=== PATIENT | male | born 1965 | race American Indian/Alaskan Native ===

== ENCOUNTER 2021-03-05 22:01 | Inpatient (IN) | payer SELFPAY ==
--- NOTE | 2021-03-05 23:15 | Emergency Department Report ---
HPI - General Chief Complaint: Weakness Time Seen by Provider: 03/05/21 23:01 - HPI HPI: 55-year-old -[place] male presents to the emergency department with complaint of weakness and episodes of passing out over the past 2 days. Patient says that multiple times he has gotten up from being seated, or gotten out of his car, " I cannot make it more than 4 steps before I get weak or pass out." He denies any headache, vision change, slurred speech, numbness or paresthesias, chest pain. At the time of my examination, while seated and resting, the patient says that he is asymptomatic. He denies any past medical history. He does not have a primary care physician. No recent travel or sick contacts at home. He has not taken anything for symptoms prior to presentation today. ED Past Medical Hx - Past Medical History Previous Medical History?: No - Surgical History Past Surgical History?: No ED Review of Systems ROS: Stated complaint: WEAKNESS Other details as noted in HPI Comment: All other systems reviewed and negative Constitutional: weakness. denies: chills, fever Eyes: denies: eye pain, vision change ENT: denies: ear pain, throat pain Respiratory: denies: cough, shortness of breath Cardiovascular: syncope. denies: chest pain, palpitations Gastrointestinal: denies: abdominal pain, vomiting Genitourinary: denies: dysuria, discharge Musculoskeletal: denies: back pain, arthralgia Skin: denies: rash, lesions Neurological: denies: headache, numbness, paresthesias Physical Exam - Physical Exam Vital Signs: Vital Signs 03/05/21 22:42 Temperature 97.6 F Pulse Rate 92 H Respiratory 17 Rate Blood Pressure 104/61 [Right] O2 Sat by Pulse 100 Oximetry Physical Exam: GENERAL: The patient is well-developed well-nourished. HENT: Normocephalic. Atraumatic. Patient has moist mucous membranes. EYES: Extraocular motions are intact. No nystagmus. NECK: Supple. Trachea is midline. CHEST/LUNGS: Clear to auscultation. There is no respiratory distress noted. HEART/CARDIOVASCULAR: Regular. There is no tachycardia. There is no murmur. ABDOMEN: Abdomen is soft, nontender. Patient has normal bowel sounds. There is no abdominal distention. SKIN: Skin is warm and dry. NEURO: The patient is awake, alert, and oriented. The patient is cooperative. The patient has no focal neurologic deficits. Normal speech. Cranial nerves II through XII grossly intact. No facial symmetry. No pronator drift or dysmetria. MUSCULOSKELETAL: There is no tenderness or deformity. There is no limitation range of motion. Muscle strength 5 out of 5 for upper and lower extremities bilaterally. RECTAL: Dark brown stool that is positive on guaiac testing. ED Course Vital Signs 03/05/21 22:42 Temperature 97.6 F Pulse Rate 92 H Respiratory 17 Rate Blood Pressure 104/61 [Right] O2 Sat by Pulse 100 Oximetry ED Medical Decision Making - Lab Data Result diagrams: 03/05/21 23:17 03/05/21 23:17 Lab Results 03/05/21 03/05/21 03/05/21 Range/Units 23:17 23:17 23:17 WBC 9.9 (4.5-11.0) K/mm3 RBC 1.81 L (3.65-5.03) M/mm3 Hgb 4.0 L* (11.8-15.2) gm/dl Hct 13.4 L* (35.5-45.6) % MCV 74 L (84-94) fl MCH 22 L (28-32) pg MCHC 30 L (32-34) % RDW 18.4 H (13.2-15.2) % Plt Count 249 (140-440) K/mm3 Add Manual Diff Complete Total Counted 100 Seg Neuts % (Manual) 96.0 H (40.0-70.0) % Lymphocytes % (Manual) 3.0 L (13.4-35.0) % Monocytes % (Manual) 1.0 (0.0-7.3) % Nucleated RBC % Not Reportable Seg Neutrophils # Man 9.5 H (1.8-7.7) K/mm3 Band Neutrophils # 0.0 K/mm3 Lymphocytes # (Manual) 0.3 L (1.2-5.4) K/mm3 Abs React Lymphs (Man) 0.0 K/mm3 Monocytes # (Manual) 0.1 (0.0-0.8) K/mm3 Eosinophils # (Manual) 0.0 (0.0-0.4) K/mm3 Basophils # (Manual) 0.0 (0.0-0.1) K/mm3 Metamyelocytes # 0.0 K/mm3 Myelocytes # 0.0 K/mm3 Promyelocytes # 0.0 K/mm3 Blast Cells # 0.0 K/mm3 WBC Morphology Not Reportable Hypersegmented Neuts Not Reportable Hyposegmented Neuts Not Reportable Hypogranular Neuts Not Reportable Smudge Cells Not Reportable Toxic Granulation Not Reportable Toxic Vacuolation Not Reportable Dohle Bodies Not Reportable Pelger-Huet Anomaly Not Reportable Marianne Rods Not Reportable Platelet Estimate Consistent w auto Clumped Platelets Not Reportable Plt Clumps, EDTA Not Reportable Large Platelets Not Reportable Giant Platelets Not Reportable Platelet Satelliting Not Reportable Plt Morphology Comment Not Reportable RBC Morphology Not Reportable Dimorphic RBCs Not Reportable Polychromasia Not Reportable Hypochromasia 2+ Poikilocytosis Not Reportable Anisocytosis 1+ Microcytosis Not Reportable Macrocytosis Not Reportable Spherocytes Not Reportable Pappenheimer Bodies Not Reportable Sickle Cells Not Reportable Target Cells Not Reportable Tear Drop Cells Not Reportable Ovalocytes Not Reportable Helmet Cells Not Reportable [place] Bodies Not Reportable [place] Rings Not Reportable Rhina Cells Not Reportable Bite Cells Not Reportable Crenated Cell Not Reportable Elliptocytes Not Reportable Acanthocytes (Spur) Few Rouleaux Not Reportable Hemoglobin C Crystals Not Reportable Schistocytes 1+ Malaria parasites Not Reportable Pan Bodies Not Reportable Hem Pathologist Commnt No Sodium 139 (137-145) mmol/L Potassium 4.2 (3.6-5.0) mmol/L Chloride 101.4 (98-107) mmol/L Carbon Dioxide 21 L (22-30) mmol/L Anion Gap 21 mmol/L BUN 49 H (9-20) mg/dL Creatinine 1.7 H (0.8-1.3) mg/dL Estimated GFR 42 ml/min BUN/Creatinine Ratio 29 % Glucose 155 H (75-100) mg/dL Calcium 8.5 (8.4-10.2) mg/dL Magnesium 1.60 L (1.7-2.3) mg/dL Total Bilirubin 0.30 (0.1-1.2) mg/dL AST 12 (5-40) units/L ALT 9 (7-56) units/L Alkaline Phosphatase 79 (35-129) units/L Troponin T 0.114 H* (0.00-0.029) ng/mL Total Protein 6.2 L (6.3-8.2) g/dL Albumin 3.4 L (3.9-5) g/dL Albumin/Globulin Ratio 1.2 % Triglycerides 82 (2-149) mg/dL Cholesterol 107 (50-199) mg/dL LDL Cholesterol Direct 53 (50-130) mg/dL HDL Cholesterol 42 (40-59) mg/dL Cholesterol/HDL Ratio 2.54 % TSH 3.360 (0.270-4.200) mlU/mL Blood Type Antibody Screen Crossmatch 03/05/21 Range/Units 23:50 WBC (4.5-11.0) K/mm3 RBC (3.65-5.03) M/mm3 Hgb (11.8-15.2) gm/dl Hct (35.5-45.6) % MCV (84-94) fl MCH (28-32) pg MCHC (32-34) % RDW (13.2-15.2) % Plt Count (140-440) K/mm3 Add Manual Diff Total Counted Seg Neuts % (Manual) (40.0-70.0) % Lymphocytes % (Manual) (13.4-35.0) % Monocytes % (Manual) (0.0-7.3) % Nucleated RBC % Seg Neutrophils # Man (1.8-7.7) K/mm3 Band Neutrophils # K/mm3 Lymphocytes # (Manual) (1.2-5.4) K/mm3 Abs React Lymphs (Man) K/mm3 Monocytes # (Manual) (0.0-0.8) K/mm3 Eosinophils # (Manual) (0.0-0.4) K/mm3 Basophils # (Manual) (0.0-0.1) K/mm3 Metamyelocytes # K/mm3 Myelocytes # K/mm3 Promyelocytes # K/mm3 Blast Cells # K/mm3 WBC Morphology Hypersegmented Neuts Hyposegmented Neuts Hypogranular Neuts Smudge Cells Toxic Granulation Toxic Vacuolation Dohle Bodies Pelger-Huet Anomaly Marianne Rods Platelet Estimate Clumped Platelets Plt Clumps, EDTA Large Platelets Giant Platelets Platelet Satelliting Plt Morphology Comment RBC Morphology Dimorphic RBCs Polychromasia Hypochromasia Poikilocytosis Anisocytosis Microcytosis Macrocytosis Spherocytes Pappenheimer Bodies Sickle Cells Target Cells Tear Drop Cells Ovalocytes Helmet Cells [place]-Buf[place] Bodies [place] Rings Rhina Cells Bite Cells Crenated Cell Elliptocytes Acanthocytes (Spur) Rouleaux Hemoglobin C Crystals Schistocytes Malaria parasites Pan Bodies Hem Pathologist Commnt Sodium (137-145) mmol/L Potassium (3.6-5.0) mmol/L Chloride (98-107) mmol/L Carbon Dioxide (22-30) mmol/L Anion Gap mmol/L BUN (9-20) mg/dL Creatinine (0.8-1.3) mg/dL Estimated GFR ml/min BUN/Creatinine Ratio % Glucose (75-100) mg/dL Calcium (8.4-10.2) mg/dL Magnesium (1.7-2.3) mg/dL Total Bilirubin (0.1-1.2) mg/dL AST (5-40) units/L ALT (7-56) units/L Alkaline Phosphatase (35-129) units/L Troponin T (0.00-0.029) ng/mL Total Protein (6.3-8.2) g/dL Albumin (3.9-5) g/dL Albumin/Globulin Ratio % Triglycerides (2-149) mg/dL Cholesterol (50-199) mg/dL LDL Cholesterol Direct (50-130) mg/dL HDL Cholesterol (40-59) mg/dL Cholesterol/HDL Ratio % TSH (0.270-4.200) mlU/mL Blood Type O POSITIVE Antibody Screen Negative Crossmatch See Detail - EKG Data -: EKG Interpreted by Ne EKG shows normal: axis, intervals, QRS complexes (LVH, Q waves to the anterior leads), ST-T waves (T wave inversions to the lateral leads) Rate: normal - EKG Data When compared to previous EKG there are: previous EKG unavailable Interpretation: other (Ectopic atrial rhythm at 79 bpm, left axis deviation, LVH, Q waves to the septal leads, T wave inversions to the lateral leads) - Radiology Data Radiology results: report reviewed CT HEAD WITHOUT CONTRAST INDICATION / CLINICAL INFORMATION: Weakness, recurring syncope. TECHNIQUE: All CT scans at this location are performed using CT dose reduction for ALARA by means of automated exposure control. COMPARISON: None available. FINDINGS: BRAIN PARENCHYMA: No acute intracranial hemorrhage. No evidence of recent infarct. No mass effect or midline shift. Severe chronic small vessel ischemic changes with confluent areas of periventricular and subcortical white matter hypoattenuation. Remote left parietal, left thalamus, and right occipital lobe infarctions noted. VENTRICULAR SYSTEM/EXTRA-AXIAL SPACES: Diffuse cerebral atrophy, advanced for age. No extra-axial fluid collection. ORBITS: Normal as visualized. SKELETAL SYSTEM/SOFT TISSUES: Normal bones and soft tissues. PARANASAL SINUSES/MASTOID AIR CELLS: No significant abnormality. ADDITIONAL FINDINGS: None. IMPRESSION: 1. No evidence of acute intracranial abnormality. 2. Severe chronic ischemic changes with remote infarcts, as detailed above. - Medical Decision Making This patient presents to the emergency department with the complaint of having a few syncopal episodes and significant generalized weakness to the point where he has difficulty walking more than 4 steps. On examination the patient does not have any focal, motor or sensory deficits and his cranial nerves are intact, but this examination was done while in the [facility] and muscle strength tested against gravity. The patient did have difficulty bearing weight/standing and transferring from the [facility] to the CT scanner and back. EKG did not have any morphology consistent with ST elevation myocardial infarction. CT scan of the head without contrast did not show any hemorrhage, large vessel occlusion or any acute process but there is evidence of multiple remote infarcts and some atrophy. Patient's labs show a hemoglobin of 4, acute kidney injury with a GFR of about 40, elevated troponin level of 0.11. Patient symptoms may be secondary to the significant anemia. The patient has no complaints of chest pain but the elevated troponin and a possible NSTEMI may also be related to the significant anemia causing a supplydemand myocardial mismatch. Rectal examination shows dark brown stool that is positive on guaiac testing. A dose of IV Protonix has been given and a consult has been placed for GI. 3 units of packed red blood cells have been ordered for transfusion. The patient will be admitted to the hospital for further evaluation and treatment and was accepted for admission by the hospitalist, Dr. Cole. Critical Care Time: Yes Critical care time in (mins) excluding proc time.: 35 Critical care attestation.: If time is entered above; I have spent that time in minutes in the direct care of this critically ill patient, excluding procedure time. Critical care time was spent on this patient in doing his initial evaluation, multiple reevaluations, ordering and interpretation of labs and imaging, ordering of 3 units of packed red blood cells for transfusion, multiple discussions with the patient. Critical Care Time: 35 minutes ED Disposition Clinical Impression: Recurrent syncope, Symptomatic anemia, GI bleed, KRISTOFER (acute kidney injury), NSTEMI (non-ST elevated myocardial infarction) Disposition: 09 ADMITTED INPATIENT Is pt being admited?: Yes Condition: Serious Time of Disposition: 01:07
[2021-03-05 23:28] LABS: Mean Corpuscular HGB Conc 30 % (32-34); Mean Corpuscular Volume 74 fl (84-94); Platelet Count 249 K/mm3 (140-440); Red Blood Count 1.81 M/mm3 (3.65-5.03); Red Cell Distribution Width 18.4 % (13.2-15.2)
[2021-03-05 23:35] LABS: Hematocrit 13.4 % (35.5-45.6)
[2021-03-05] MEDS ORDERED: PANTOPRAZOLE 40 MG INJ IV ONE (23:42)
[2021-03-05] MEDS ORDERED: SODIUM CHLORIDE 0.9% 500 ML 500 ML IV ONE (23:43)
[2021-03-05 23:51] LABS: Albumin 3.4 g/dL (3.9-5); Calcium 8.5 mg/dL (8.4-10.2)
[2021-03-06] MEDS ORDERED: MAGNESIUM SULFATE 1 GM in SODIUM CHLORIDE 0.9% 50 ML IV ONE (00:34)
--- NOTE | 2021-03-06 00:38 | Cat Scan Report ---
CT HEAD WITHOUT CONTRAST INDICATION / CLINICAL INFORMATION: Weakness, recurring syncope. TECHNIQUE: All CT scans at this location are performed using CT dose reduction for ALARA by means of automated exposure control. COMPARISON: None available. FINDINGS: BRAIN PARENCHYMA: No acute intracranial hemorrhage. No evidence of recent infarct. No mass effect or midline shift. Severe chronic small vessel ischemic changes with confluent areas of periventricular a nd subcortical white matter hypoattenuation. Remote left parietal, left thalamus, and right occipital lobe infarctions noted. VENTRICULAR SYSTEM/EXTRA-AXIAL SPACES: Diffuse cerebral atrophy, advanced for age. No extra-axial flu id collection. ORBITS: Normal as visualized. SKELETAL SYSTEM/SOFT TISSUES: Normal bones and soft tissues. PARANASAL SINUSES/MASTOID AIR CELLS: No significant abnormality. ADDITIONAL FINDINGS: None. IMPRESSION: 1. No evidence of acute intracranial abnormality. 2. Severe chronic ischemic changes with remote infarcts, as detailed above. Signer Name: Raciel Beverly MD Signed: 03/06/2021 12:33 AM Workstation Name: [id number]
[2021-03-06 01:40] LABS: Total Cells Counted 100
[2021-03-06 01:41] LABS: Schistocytes 1+
[2021-03-06 01:42] LABS: Hypochromasia 2+
[2021-03-06 01:43] LABS: Anisocytosis 1+; Platelet Estimate Consistent w Auto
[2021-03-06 01:50] LABS: Chol/HDL Ratio 2.54 %
[2021-03-06] MEDS ORDERED: ACETAMINOPHEN 325 MG TAB PO PRN (02:47)
[2021-03-06] MEDS ORDERED: MORPHINE 4 MG/1 ML INJ IV PRN (02:47)
[2021-03-06] MEDS ORDERED: traMADol 50 MG TAB PO PRN (02:47)
--- NOTE | 2021-03-06 02:55 | History and Physical Report ---
History of Present Illness Date of examination: 03/06/21 Date of admission: 03/06/21 Chief complaint: Weakness Syncope History of present illness: 55-year-old -[place] male with no significant past medical history was brought to the emergency room because of weakness and episodes of passing out over the past 2 days. Patient says that multiple times he has gotten up from being seated, or gotten out of his car, " I cannot make it more than 4 steps before I get weak or pass out." He denies any headache, vision change, slurred speech, numbness or paresthesias, chest pain. while seated and resting, the patient says that he is asymptomatic. He does not have a primary care physician. No recent travel or sick contacts at home. In the emergency room patient is found to have hemoglobin of 4.0 and hematocrit 13.4, also patient troponin is elevated 0.114.'s were going to admit the patient to the telemetry. Will consult GI. Patient is getting 3 unit of packed red blood cell, Protonix we also consult cardiology Medications and Allergies Allergies Allergy/AdvReac Type Severity Reaction Status Date / Time No Known Allergies Allergy Verified 03/05/21 22:48 Active Meds: Active Medications Acetaminophen (Acetaminophen 325 Mg Tab) 650 mg PO Q6H PRN PRN Reason: Pain, Mild (1-3) Atorvastatin Calcium (Atorvastatin 40 Mg Tab) 40 mg PO QHS FRANKIE Sodium Chloride (Nacl 0.9% 1000 Ml) 1,000 mls @ 100 mls/hr IV DIRECT FRANKIE Morphine Sulfate (Morphine 4 Mg/1 Ml Inj) 2 mg IV Q5MIN PRN PRN Reason: Chest Pain unrelieved by NTG Pantoprazole Sodium (Pantoprazole 40 Mg Inj) 40 mg IV BID FRANKIE Sodium Chloride (Sodium Chloride 0.9% 10 Ml Flush Syringe) 10 ml IV PRN PRN PRN Reason: LINE FLUSH Tramadol HCl (Tramadol 50 Mg Tab) 50 mg PO Q6H PRN PRN Reason: Pain, Moderate (4-6) Review of Systems All systems: negative Constitutional: weakness Cardiovascular: syncope Exam - Constitutional Vitals: Temp Pulse Resp BP Pulse Ox 97.6 F 92 H 17 104/61 100 03/05/21 22:42 03/05/21 22:42 03/05/21 22:42 03/05/21 22:42 03/05/21 22:42 General appearance: Present: no acute distress, well-nourished - EENT Eyes: Present: PERRL ENT: hearing intact, clear oral mucosa - Neck Neck: Present: supple, normal ROM - Respiratory Respiratory effort: normal Respiratory: bilateral: diminished - Cardiovascular Heart Sounds: Present: S1 & S2. Absent: rub, click - Extremities Extremities: pulses symmetrical, No edema Peripheral Pulses: within normal limits - Abdominal General gastrointestinal: Present: soft, non-tender, non-distended, normal bowel sounds Male genitourinary: Present: normal - Integumentary Integumentary: Present: clear, warm, dry - Musculoskeletal Musculoskeletal: gait normal, strength equal bilaterally - Psychiatric Psychiatric: appropriate mood/affect, intact judgment & insight - Neurologic Neurologic: CNII-XII intact, moves all extremities HEART Score - HEART Score Troponin: Troponin T 0.114 ng/mL (0.00-0.029) H* 03/05/21 23:17 Results - Labs CBC & Chem 7: 03/05/21 23:17 03/05/21 23:17 Labs: Laboratory Last Values WBC 9.9 K/mm3 (4.5-11.0) 03/05/21 23:17 RBC 1.81 M/mm3 (3.65-5.03) L 03/05/21 23:17 Hgb 4.0 gm/dl (11.8-15.2) L* 03/05/21 23:17 Hct 13.4 % (35.5-45.6) L* 03/05/21 23:17 MCV 74 fl (84-94) L 03/05/21 23:17 MCH 22 pg (28-32) L 03/05/21 23:17 MCHC 30 % (32-34) L 03/05/21 23:17 RDW 18.4 % (13.2-15.2) H 03/05/21 23:17 Plt Count 249 K/mm3 (140-440) 03/05/21 23:17 Add Manual Diff Complete 03/05/21 23:17 Total Counted 100 03/05/21 23:17 Seg Neuts % (Manual) 96.0 % (40.0-70.0) H 03/05/21 23:17 Lymphocytes % (Manual) 3.0 % (13.4-35.0) L 03/05/21 23:17 Monocytes % (Manual) 1.0 % (0.0-7.3) 03/05/21 23:17 Nucleated RBC % Not Reportable 03/05/21 23:17 Seg Neutrophils # Man 9.5 K/mm3 (1.8-7.7) H 03/05/21 23:17 Band Neutrophils # 0.0 K/mm3 03/05/21 23:17 Lymphocytes # (Manual) 0.3 K/mm3 (1.2-5.4) L 03/05/21 23:17 Abs React Lymphs (Man) 0.0 K/mm3 03/05/21 23:17 Monocytes # (Manual) 0.1 K/mm3 (0.0-0.8) 03/05/21 23:17 Eosinophils # (Manual) 0.0 K/mm3 (0.0-0.4) 03/05/21 23:17 Basophils # (Manual) 0.0 K/mm3 (0.0-0.1) 03/05/21 23:17 Metamyelocytes # 0.0 K/mm3 03/05/21 23:17 Myelocytes # 0.0 K/mm3 03/05/21 23:17 Promyelocytes # 0.0 K/mm3 03/05/21 23:17 Blast Cells # 0.0 K/mm3 03/05/21 23:17 WBC Morphology Not Reportable 03/05/21 23:17 Hypersegmented Neuts Not Reportable 03/05/21 23:17 Hyposegmented Neuts Not Reportable 03/05/21 23:17 Hypogranular Neuts Not Reportable 03/05/21 23:17 Smudge Cells Not Reportable 03/05/21 23:17 Toxic Granulation Not Reportable 03/05/21 23:17 Toxic Vacuolation Not Reportable 03/05/21 23:17 Dohle Bodies Not Reportable 03/05/21 23:17 Pelger-Huet Anomaly Not Reportable 03/05/21 23:17 Marianne Rods Not Reportable 03/05/21 23:17 Platelet Estimate Consistent w auto 03/05/21 23:17 Clumped Platelets Not Reportable 03/05/21 23:17 Plt Clumps, EDTA Not Reportable 03/05/21 23:17 Large Platelets Not Reportable 03/05/21 23:17 Giant Platelets Not Reportable 03/05/21 23:17 Platelet Satelliting Not Reportable 03/05/21 23:17 Plt Morphology Comment Not Reportable 03/05/21 23:17 RBC Morphology Not Reportable 03/05/21 23:17 Dimorphic RBCs Not Reportable 03/05/21 23:17 Polychromasia Not Reportable 03/05/21 23:17 Hypochromasia 2+ 03/05/21 23:17 Poikilocytosis Not Reportable 03/05/21 23:17 Anisocytosis 1+ 03/05/21 23:17 Microcytosis Not Reportable 03/05/21 23:17 Macrocytosis Not Reportable 03/05/21 23:17 Spherocytes Not Reportable 03/05/21 23:17 Pappenheimer Bodies Not Reportable 03/05/21 23:17 Sickle Cells Not Reportable 03/05/21 23:17 Target Cells Not Reportable 03/05/21 23:17 Tear Drop Cells Not Reportable 03/05/21 23:17 Ovalocytes Not Reportable 03/05/21 23:17 Helmet Cells Not Reportable 03/05/21 23:17 Quesada-Stephenson Bodies Not Reportable 03/05/21 23:17 [place] Rings Not Reportable 03/05/21 23:17 [place] Cells Not Reportable 03/05/21 23:17 Bite Cells Not Reportable 03/05/21 23:17 Crenated Cell Not Reportable 03/05/21 23:17 Elliptocytes Not Reportable 03/05/21 23:17 Acanthocytes (Spur) Few 03/05/21 23:17 Rouleaux Not Reportable 03/05/21 23:17 Hemoglobin C Crystals Not Reportable 03/05/21 23:17 Schistocytes 1+ 03/05/21 23:17 Malaria parasites Not Reportable 03/05/21 23:17 Pan Bodies Not Reportable 03/05/21 23:17 Hem Pathologist Commnt No 03/05/21 23:17 Sodium 139 mmol/L (137-145) 03/05/21 23:17 Potassium 4.2 mmol/L (3.6-5.0) 03/05/21 23:17 Chloride 101.4 mmol/L (98-107) 03/05/21 23:17 Carbon Dioxide 21 mmol/L (22-30) L 03/05/21 23:17 Anion Gap 21 mmol/L 03/05/21 23:17 BUN 49 mg/dL (9-20) H 03/05/21 23:17 Creatinine 1.7 mg/dL (0.8-1.3) H 03/05/21 23:17 Estimated GFR 42 ml/min 03/05/21 23:17 BUN/Creatinine Ratio 29 % 03/05/21 23:17 Glucose 155 mg/dL (75-100) H 03/05/21 23:17 Calcium 8.5 mg/dL (8.4-10.2) 03/05/21 23:17 Magnesium 1.60 mg/dL (1.7-2.3) L 03/05/21 23:17 Total Bilirubin 0.30 mg/dL (0.1-1.2) 03/05/21 23:17 AST 12 units/L (5-40) 03/05/21 23:17 ALT 9 units/L (7-56) 03/05/21 23:17 Alkaline Phosphatase 79 units/L (35-129) 03/05/21 23:17 Troponin T 0.114 ng/mL (0.00-0.029) H* 03/05/21 23:17 Total Protein 6.2 g/dL (6.3-8.2) L 03/05/21 23:17 Albumin 3.4 g/dL (3.9-5) L 03/05/21 23:17 Albumin/Globulin Ratio 1.2 % 03/05/21 23:17 Triglycerides 82 mg/dL (2-149) 03/05/21 23:17 Cholesterol 107 mg/dL (50-199) 03/05/21 23:17 LDL Cholesterol Direct 53 mg/dL (50-130) 03/05/21 23:17 HDL Cholesterol 42 mg/dL (40-59) 03/05/21 23:17 Cholesterol/HDL Ratio 2.54 % 03/05/21 23:17 TSH 3.360 mlU/mL (0.270-4.200) 03/05/21 23:17 Blood Type O POSITIVE 03/05/21 23:50 Antibody Screen Negative 03/05/21 23:50 Crossmatch See Detail 03/05/21 23:50 - Imaging and Cardiology CT Scan - head: report reviewed Assessment and Plan VTE prophylaxis?: Mechanical Plan of care discussed with patient/family: Yes - Patient Problems (1) Symptomatic anemia Current Visit: Yes Status: Acute Plan to address problem: Admit the patient to the medical telemetry. NPO. Normal saline at the rate of 100 cc/h. Protonix 40 mg IV every 12 hour. We transfused 3 unit of packed red blood cells. Will consult GI for evaluation. Recheck CBC in the morning (2) GI bleed Current Visit: Yes Status: Acute Plan to address problem: NPO. Normal saline at the rate of 100 cc/h. Protonix 40 mg IV every 12 hour. We transfused 3 unit of packed red blood cells. Will consult GI for evaluation. Recheck CBC in the morning (3) Elevated troponin Current Visit: Yes Status: Acute Plan to address problem: Most likely secondary to anemia. Lipitor 40 mg p.o. daily. Serial cardiac enzymes. Echocardiogram. Cardiology evaluation (4) KRISTOFER (acute kidney injury) Current Visit: Yes Status: Acute Plan to address problem: Normal saline at the rate of 100 cc/h. Avoid nephrotoxic drug. Renally dose medication. Repeat BMP in the morning (5) Recurrent syncope Current Visit: Yes Status: Acute Plan to address problem: Normal saline at the rate of 100 cc/h. Echocardiogram. Cardiology evaluation (6) DVT prophylaxis Current Visit: Yes Status: Acute Plan to address problem: SCD for DVT prophylaxis. Protonix 40 mg IV every 12 hours for GI prophylaxis. Patient is a full code
[2021-03-06] MEDS ORDERED: SODIUM CHLORIDE 0.9% 1000 ML 1,000 ML IV SCH (03:00)
[2021-03-06] MEDS ORDERED: SODIUM CHLORIDE 0.9% 500 ML 500 ML ONE (03:19)
--- NOTE | 2021-03-06 10:25 | Electrocardiograph Report ---
[facility] Test Date: 2021-03-06 Test Time: 01:20:38 Pat Name: EMMETT GUSMAN Department: Room: [facility] Gender: M [employer] T[employer]er: NATASHA : 1965 Requested By: SANDRA GAINES Order Number: [id number] Reading MD: Louis Cervantes Measurements Intervals [place] Rate: 79 P: -87 AR: 104 QRS: -42 QRSD: 97 T: 94 QT: 410 QTc: 470 Interpretive Statements Ectopic atrial rhythm LVH with secondary repolarization abnormality nonspecific st-t No previous ECG available for comparison Electronically Signed On 03-06-2021 10:24:50 EST by Louis Cervantes
[2021-03-06 12:09] LABS: Basophils % (Auto) 0.3 % (0.0-1.8); Hemoglobin 6.1 gm/dl (11.8-15.2); Lymphocytes # (Auto) 0.9 K/mm3 (1.2-5.4); Lymphocytes % (Auto) 12.7 % (13.4-35.0); Mean Corpuscular HGB Conc 32 % (32-34); Mean Corpuscular Volume 81 fl (84-94); Monocytes # (Auto) 0.5 K/mm3 (0.0-0.8); Monocytes % (Auto) 7.4 % (0.0-7.3); Platelet Count 195 K/mm3 (140-440); Red Blood Count 2.33 M/mm3 (3.65-5.03)
[2021-03-06 12:19] LABS: Red Cell Distribution Width 20.8 % (13.2-15.2)
[2021-03-06] MEDS ORDERED: SODIUM CHLORIDE 0.9% 500 ML 500 ML IV ONE (13:11)
[2021-03-06 13:17] LABS: Iron 9 ug/dL (49-181); Total Iron Binding Capacity 309 mcg/dL (250-450)
[2021-03-06 13:19] LABS: Calcium 8.7 mg/dL (8.4-10.2)
--- NOTE | 2021-03-06 13:42 | Consultation ---
History of Present Illness Consult date: 03/06/21 Requesting physician: LISANDRO CHAPA Consult reason: other (NSTEMI) History of present illness: Patient is 55-year-old -[place] male with no significant past medical history who came to the ED for complaint of weakness for 3 to 4 days. Patient reports that over the last several weeks he has noticed he has felt weaker however in the last several days it has progressively gotten much worse. He st ates that he has had difficulty taking more than a few steps without feeling like the need to pass out. Patient reports that however over the last week and a half he has noticed that he has had bloody bowel movements. Of note work-up in ED showed patient to have hemoglobin of 4 and hematocrit of 13.4 and a troponin of 0.11. Patient was transfused with packed red blood cells. Patient denies chest pain, shortness of breath, nausea, vomiting, or diaphoresis. Cardiology is consulted for NSTEMI. Patient is previously known to our practice. Past History Past Medical History: No medical history Past Surgical History: No surgical history Social history: smoking (1/2ppd) Family history: diabetes Medications and Allergies Allergies Allergy/AdvReac Type Severity Reaction Status Date / Time No Known Allergies Allergy Verified 03/05/21 22:48 Home Medications Medication Instructions Recorded Confirmed Last Taken Type No Known Home Medications [No 03/06/21 03/06/21 Unknown History Reported Home Medications] Active Meds: Active Medications Acetaminophen (Acetaminophen 325 Mg Tab) 650 mg PO Q6H PRN PRN Reason: Pain, Mild (1-3) Atorvastatin Calcium (Atorvastatin 40 Mg Tab) 40 mg PO QHS FRANKIE Sodium Chloride (Nacl 0.9% 1000 Ml) 1,000 mls @ 100 mls/hr IV DIRECT FRANKIE Morphine Sulfate (Morphine 4 Mg/1 Ml Inj) 2 mg IV Q5MIN PRN PRN Reason: Chest Pain unrelieved by NTG Pantoprazole Sodium (Pantoprazole 40 Mg Inj) 40 mg IV BID FRANKIE Sodium Chloride (Sodium Chloride 0.9% 10 Ml Flush Syringe) 10 ml IV PRN PRN PRN Reason: LINE FLUSH Tramadol HCl (Tramadol 50 Mg Tab) 50 mg PO Q6H PRN PRN Reason: Pain, Moderate (4-6) Review of Systems Constitutional: fatigue, weakness, no weight loss, no weight gain, no fever, no chills, no sweats Ears, nose, mouth and throat: no decreased hearing, no nasal congestion, no nasal discharge Cardiovascular: no chest pain, no orthopnea, no palpitations, no rapid/irregular heart beat Respiratory: no cough, no cough with sputum, no shortness of breath Gastrointestinal: melena, no abdominal pain, no vomiting, no diarrhea Musculoskeletal: no neck stiffness, no neck pain, no shooting arm pain Integumentary: no rash, no pruritis, no redness Neurological: no head injury, no transient paralysis, no weakness Psychiatric: no anxiety, no memory loss Endocrine: no cold intolerance, no heat intolerance Hematologic/Lymphatic: no easy bruising, no easy bleeding Physical Examination Vital Signs Temp Pulse Resp BP Pulse Ox 97.6 F 92 H 17 104/61 100 03/05/21 22:42 03/05/21 22:42 03/05/21 22:42 03/05/21 22:42 03/05/21 22:42 Results 03/06/21 11:17 03/06/21 11:17 Cardiac Enzymes 03/05/21 Range/Units 23:17 AST 12 (5-40) units/L Lipids 03/05/21 Range/Units 23:17 Triglycerides 82 (2-149) mg/dL Cholesterol 107 (50-199) mg/dL HDL Cholesterol 42 (40-59) mg/dL Cholesterol/HDL Ratio 2.54 % CBC 03/05/21 03/06/21 Range/Units 23:17 11:17 WBC 9.9 7.0 (4.5-11.0) K/mm3 RBC 1.81 L 2.33 L (3.65-5.03) M/mm3 Hgb 4.0 L* 6.1 L (11.8-15.2) gm/dl Hct 13.4 L* 19.0 L* (35.5-45.6) % Plt Count 249 195 (140-440) K/mm3 Lymph # (Auto) 0.9 L (1.2-5.4) K/mm3 [place] # (Auto) 0.5 (0.0-0.8) K/mm3 Eos # (Auto) 0.0 (0.0-0.4) K/mm3 Baso # (Auto) 0.0 (0.0-0.1) K/mm3 Comprehensive Metabolic Panel 03/05/21 03/06/21 Range/Units 23:17 11:17 Sodium 139 139 (137-145) mmol/L Potassium 4.2 5.8 H D (3.6-5.0) mmol/L Chloride 101.4 106.2 (98-107) mmol/L Carbon Dioxide 21 L 28 D (22-30) mmol/L BUN 49 H 50 H (9-20) mg/dL Creatinine 1.7 H 1.6 H (0.8-1.3) mg/dL Glucose 155 H 97 (75-100) mg/dL Calcium 8.5 8.7 (8.4-10.2) mg/dL AST 12 (5-40) units/L ALT 9 (7-56) units/L Alkaline Phosphatase 79 (35-129) units/L Total Protein 6.2 L (6.3-8.2) g/dL Albumin 3.4 L (3.9-5) g/dL - Imaging and Cardiology Echo: pending EKG interpretations - Telemetry EKG Rhythm: Sinus Rhythm - EKG Sinus rhythms and dysrhythmias: sinus rhythm Chamber hypertrophy or enlargement: left ventricular hypertro Assessment and Plan Patient is 55-year-old -[place] male with no significant past medical history who came to the ED for complaint of weakness for 3 to 4 days Anemia-patient being transfused with PRBCs Suspected GI Bleed- GI consulted NSTEMI suspected type 2-likely result of severe anemia/ GI bleed KRISTOFER-creatinine 1.6 HTN Tobacco use Plan: EKG shows ectopic atrial rhythm rate 79, LVH, with nonspecific ST T abnormalities. No acute ischemic changes. Troponins 0.11-> 0.14. Repeat cardiac enzymes pending. Patient denies any cardiac symptoms Echo pending No anticoagulation due to patient's severe anemia Patient seen in conjunction with Dr. Cervantes who agrees with this plan of care - Patient Problems (1) Tobacco use Current Visit: Yes Status: Acute (2) KRISTOFER (acute kidney injury) Current Visit: Yes Status: Acute (3) GI bleed Current Visit: Yes Status: Acute (4) NSTEMI (non-ST elevated myocardial infarction) Current Visit: Yes Status: Acute (5) Recurrent syncope Current Visit: Yes Status: Acute (6) Symptomatic anemia Current Visit: Yes Status: Acute
[2021-03-06] MEDS: PANTOPRAZOLE 40 MG INJ IV SCH ×2 (14:00→22:49)
--- NOTE | 2021-03-06 16:45 | Gastroenterology Consultation ---
History of Present Illness - Reason for Consult Consult date: 03/06/21 anemia, GI bleed Requesting physician: LISANDRO CHAPA - History of Present Illness This is a 55 yo male with no significant PMH came to the ED for weakness for the past 3-4 days. Patient is a poor historian and limited history. Reports having bloody stools on and off for 2 weeks. Last BM was prior to coming to the ED and it was brown. No abdominal pain, nausea/vomiting, or melena. No prior EGD/colonoscopy. States he has not been getting medical care recently. No known prior baseline H/H. No NSAID use. In the ED, patient had Hgb of 4, troponin of 0.11. Medication list reviewed. Past History Past Medical History: No medical history Past Surgical History: No surgical history Social history: smoking (1/2ppd) Family history: diabetes Medications and Allergies Allergies Allergy/AdvReac Type Severity Reaction Status Date / Time No Known Allergies Allergy Verified 03/05/21 22:48 Home Medications Medication Instructions Recorded Confirmed Last Taken Type No Known Home Medications [No 03/06/21 03/06/21 Unknown History Reported Home Medications] Active Meds: Active Medications Acetaminophen (Acetaminophen 325 Mg Tab) 650 mg PO Q6H PRN PRN Reason: Pain, Mild (1-3) Atorvastatin Calcium (Atorvastatin 40 Mg Tab) 40 mg PO QHS FRANKIE Sodium Chloride (Nacl 0.9% 1000 Ml) 1,000 mls @ 100 mls/hr IV DIRECT FRANKIE Morphine Sulfate (Morphine 4 Mg/1 Ml Inj) 2 mg IV Q5MIN PRN PRN Reason: Chest Pain unrelieved by NTG Pantoprazole Sodium (Pantoprazole 40 Mg Inj) 40 mg IV BID [facility] Last Admin: 03/06/21 14:00 Dose: 40 mg Documented by: Sodium Chloride (Sodium Chloride 0.9% 10 Ml Flush Syringe) 10 ml IV PRN PRN PRN Reason: LINE FLUSH Tramadol HCl (Tramadol 50 Mg Tab) 50 mg PO Q6H PRN PRN Reason: Pain, Moderate (4-6) Review of Systems - Review of Systems All systems: negative Constitutional: no weight loss, no weight gain, no fever, no chills Cardiovascular: no chest pain Gastrointestinal: hematochezia, no abdominal pain, no nausea, no vomiting, no melena Rectal: bleeding, no hemorrhoids Neurological: weakness Psychiatric: no anxiety Hematologic/Lymphatic: no easy bruising Allergic/Immunologic: no wheezing Exam - Constitutional Vital Signs: Temp Pulse Resp BP Pulse Ox 98.2 F 66 16 157/94 100 03/06/21 16:02 03/06/21 16:02 03/06/21 16:02 03/06/21 16:02 03/06/21 15:30 General appearance: no acute distress - EENT Eyes: EOM intact ENT: hearing intact - Neck Neck: supple - Respiratory Respiratory effort: normal - Cardiovascular Rhythm: regular Heart Sounds: Present: S1 & S2 - Gastrointestinal General gastrointestinal: Present: soft, non-tender, non-distended, normal bowel sounds - Integumentary Integumentary: Present: clear, warm - Neurologic Neurological: alert and oriented x3 - Labs CBC & Chem 7: 03/06/21 11:17 03/06/21 11:17 Lab Results: Laboratory Results - last 24 hr 03/05/21 03/05/21 03/05/21 23:17 23:17 23:17 WBC 9.9 RBC 1.81 L Hgb 4.0 L* Hct 13.4 L* MCV 74 L MCH 22 L MCHC 30 L RDW 18.4 H Plt Count 249 Lymph % (Auto) [place] % (Auto) Eos % (Auto) Baso % (Auto) Lymph # (Auto) [place] # (Auto) Eos # (Auto) Baso # (Auto) Add Manual Diff Complete Total Counted 100 Seg Neutrophils % Seg Neuts % (Manual) 96.0 H Lymphocytes % (Manual) 3.0 L Monocytes % (Manual) 1.0 Nucleated RBC % Not Reportable Seg Neutrophils # Seg Neutrophils # Man 9.5 H Band Neutrophils # 0.0 Lymphocytes # (Manual) 0.3 L Abs React Lymphs (Man) 0.0 Monocytes # (Manual) 0.1 Eosinophils # (Manual) 0.0 Basophils # (Manual) 0.0 Metamyelocytes # 0.0 Myelocytes # 0.0 Promyelocytes # 0.0 Blast Cells # 0.0 WBC Morphology Not Reportable Hypersegmented Neuts Not Reportable Hyposegmented Neuts Not Reportable Hypogranular Neuts Not Reportable Smudge Cells Not Reportable Toxic Granulation Not Reportable Toxic Vacuolation Not Reportable Dohle Bodies Not Reportable Pelger-Huet Anomaly Not Reportable Marianne Rods Not Reportable Platelet Estimate Consistent w auto Clumped Platelets Not Reportable Plt Clumps, EDTA Not Reportable Large Platelets Not Reportable Giant Platelets Not Reportable Platelet Satelliting Not Reportable Plt Morphology Comment Not Reportable RBC Morphology Not Reportable Dimorphic RBCs Not Reportable Polychromasia Not Reportable Hypochromasia 2+ Poikilocytosis Not Reportable Anisocytosis 1+ Microcytosis Not Reportable Macrocytosis Not Reportable Spherocytes Not Reportable Pappenheimer Bodies Not Reportable Sickle Cells Not Reportable Target Cells Not Reportable Tear Drop Cells Not Reportable Ovalocytes Not Reportable Helmet Cells Not Reportable [place] Bodies Not Reportable Mallard Rings Not Reportable Rhina Cells Not Reportable Bite Cells Not Reportable Crenated Cell Not Reportable Elliptocytes Not Reportable Acanthocytes (Spur) Few Rouleaux Not Reportable Hemoglobin C Crystals Not Reportable Schistocytes 1+ Malaria parasites Not Reportable Pan Bodies Not Reportable Hem Pathologist Commnt No Sodium 139 Potassium 4.2 Chloride 101.4 Carbon Dioxide 21 L Anion Gap 21 BUN 49 H Creatinine 1.7 H Estimated GFR 42 BUN/Creatinine Ratio 29 Glucose 155 H Hemoglobin A1c Calcium 8.5 Magnesium 1.60 L Iron TIBC Ferritin Total Bilirubin 0.30 AST 12 ALT 9 Alkaline Phosphatase 79 Troponin T 0.114 H* Total Protein 6.2 L Albumin 3.4 L Albumin/Globulin Ratio 1.2 Triglycerides 82 Cholesterol 107 LDL Cholesterol Direct 53 HDL Cholesterol 42 Cholesterol/HDL Ratio 2.54 TSH 3.360 Blood Type Antibody Screen Crossmatch 03/05/21 03/06/21 03/06/21 23:50 11:17 11:17 WBC 7.0 RBC 2.33 L Hgb 6.1 L Hct 19.0 L* MCV 81 L MCH 26 L MCHC 32 RDW 20.8 H Plt Count 195 Lymph % (Auto) 12.7 L [place] % (Auto) 7.4 H Eos % (Auto) 0.0 Baso % (Auto) 0.3 Lymph # (Auto) 0.9 L [place] # (Auto) 0.5 Eos # (Auto) 0.0 Baso # (Auto) 0.0 Add Manual Diff Total Counted Seg Neutrophils % 79.6 H Seg Neuts % (Manual) Lymphocytes % (Manual) Monocytes % (Manual) Nucleated RBC % Seg Neutrophils # 5.6 Seg Neutrophils # Man Band Neutrophils # Lymphocytes # (Manual) Abs React Lymphs (Man) Monocytes # (Manual) Eosinophils # (Manual) Basophils # (Manual) Metamyelocytes # Myelocytes # Promyelocytes # Blast Cells # WBC Morphology Hypersegmented Neuts Hyposegmented Neuts Hypogranular Neuts Smudge Cells Toxic Granulation Toxic Vacuolation Dohle Bodies Pelger-Huet Anomaly Marianne Rods Platelet Estimate Clumped Platelets Plt Clumps, EDTA Large Platelets Giant Platelets Platelet Satelliting Plt Morphology Comment RBC Morphology Dimorphic RBCs Polychromasia Hypochromasia Poikilocytosis Anisocytosis Microcytosis Macrocytosis Spherocytes Pappenheimer Bodies Sickle Cells Target Cells Tear Drop Cells Ovalocytes Helmet Cells [place] Bodies Mallard Rings Rhina Cells Bite Cells Crenated Cell Elliptocytes Acanthocytes (Spur) Rouleaux Hemoglobin C Crystals Schistocytes Malaria parasites Pan Bodies Hem Pathologist Commnt Sodium 139 Potassium 5.8 H D Chloride 106.2 Carbon Dioxide 28 D Anion Gap 11 BUN 50 H Creatinine 1.6 H Estimated GFR 55 BUN/Creatinine Ratio 31 Glucose 97 Hemoglobin A1c Calcium 8.7 Magnesium Iron TIBC Ferritin Total Bilirubin AST ALT Alkaline Phosphatase Troponin T 0.143 H* D Total Protein Albumin Albumin/Globulin Ratio Triglycerides Cholesterol LDL Cholesterol Direct HDL Cholesterol Cholesterol/HDL Ratio TSH Blood Type O POSITIVE Antibody Screen Negative Crossmatch See Detail 03/06/21 03/06/21 03/06/21 11:17 11:17 11:17 WBC RBC Hgb Hct MCV MCH MCHC RDW Plt Count Lymph % (Auto) [place] % (Auto) Eos % (Auto) Baso % (Auto) Lymph # (Auto) [place] # (Auto) Eos # (Auto) Baso # (Auto) Add Manual Diff Total Counted Seg Neutrophils % Seg Neuts % (Manual) Lymphocytes % (Manual) Monocytes % (Manual) Nucleated RBC % Seg Neutrophils # Seg Neutrophils # Man Band Neutrophils # Lymphocytes # (Manual) Abs React Lymphs (Man) Monocytes # (Manual) Eosinophils # (Manual) Basophils # (Manual) Metamyelocytes # Myelocytes # Promyelocytes # Blast Cells # WBC Morphology Hypersegmented Neuts Hyposegmented Neuts Hypogranular Neuts Smudge Cells Toxic Granulation Toxic Vacuolation Dohle Bodies Pelger-Huet Anomaly Marianne Rods Platelet Estimate Clumped Platelets Plt Clumps, EDTA Large Platelets Giant Platelets Platelet Satelliting Plt Morphology Comment RBC Morphology Dimorphic RBCs Polychromasia Hypochromasia Poikilocytosis Anisocytosis Microcytosis Macrocytosis Spherocytes Pappenheimer Bodies Sickle Cells Target Cells Tear Drop Cells Ovalocytes Helmet Cells [place] Bodies Mallard Rings Rhina Cells Bite Cells Crenated Cell Elliptocytes Acanthocytes (Spur) Rouleaux Hemoglobin C Crystals Schistocytes Malaria parasites Pan Bodies Hem Pathologist Commnt Sodium Potassium Chloride Carbon Dioxide Anion Gap BUN Creatinine Estimated GFR BUN/Creatinine Ratio Glucose Hemoglobin A1c 5.1 Calcium Magnesium Iron 9 L TIBC 309 Ferritin 21.9 L Total Bilirubin AST ALT Alkaline Phosphatase Troponin T Total Protein Albumin Albumin/Globulin Ratio Triglycerides Cholesterol LDL Cholesterol Direct HDL Cholesterol Cholesterol/HDL Ratio TSH Blood Type Antibody Screen Crossmatch Assessment and Plan # GI bleed # Symptomatic anemia - suspect lower GI bleed. - iron deficiency anemia noted. Hgb at 4 on admission. went to 6 post 2 units of PRBCs. - HD stable. Rec - recommend EGD/colonoscopy. Anesthesia not available tomorrow for the procedures. Will plan for EGD/colonoscopy on . - monitor H/H and transfuse with Hgb goal >7. - PPI IV. - will order CT a/p - cardiology on board for NSTEMI. request cardiac clearance. - clear liquids. Bowel prep tomorrow. - in case of an active bleeding requiring emergent endoscopy, would need to transfer to another facility. - Patient Problems (1) GI bleed Current Visit: Yes Status: Acute (2) Symptomatic anemia Current Visit: Yes Status: Acute
[2021-03-06] MEDS: NITROGLYCERIN 2% OINT 1 GM TP SCH ×2 (18:55→22:49)
--- NOTE | 2021-03-06 18:59 | Cat Scan Report ---
CT ABDOMEN AND PELVIS WITHOUT CONTRAST INDICATION / CLINICAL INFORMATION: severe anemia GI bleed. TECHNIQUE: Axial CT images were obtained through the abdomen and pelvis without IV contrast. Sagittal and robbins l reformatted images. All CT scans at this location are performed using CT dose reduction for ALARA b y means of automated exposure control. COMPARISON: None available. FINDINGS: LOWER CHEST: The lung bases are clear. Mild cardiomegaly. LIVER: No significant abnormality. GALLBLADDER: No significant abnormality. BILE DUCTS: No significant abnormality. PANCREAS: No significant abnormality. SPLEEN: No significant abnormality. ADRENALS: No significant abnormality. RIGHT KIDNEY and URETER: No significant abnormality. LEFT KIDNEY and URETER: No significant abnormality. STOMACH and SMALL BOWEL: No significant abnormality. COLON: No significant abnormality. There is moderate to large fecal matter in the rectal vault. APPENDIX: No significant abnormality. PERITONEUM: No free fluid. No free air. No fluid collection. LYMPH NODES: No significant adenopathy. AORTA and ARTERIES: No significant abnormality. IVC and VEINS: No significant abnormality. URINARY BLADDER: No significant abnormality. REPRODUCTIVE ORGANS: No significant abnormality. ADDITIONAL FINDINGS: None. SKELETAL SYSTEM: Moderate thoracolumbar spondylosis. IMPRESSION: No acute process identified. No evidence for GI bleeding on this limited noncontrast CT. Mild cardiomegaly. Moderate fecal matter in the rectal vault but no evidence for obstruction. Signer Name: Ronnie Dennis Jr, MD Signed: 03/06/2021 6:55 PM Workstation Name: [id number]
[2021-03-06 19:14] LABS: Hemoglobin 6.2 gm/dl (11.8-15.2); Mean Corpuscular HGB Conc 33 % (32-34); Mean Corpuscular Volume 81 fl (84-94); Platelet Count 165 K/mm3 (140-440); Red Blood Count 2.35 M/mm3 (3.65-5.03)
[2021-03-06 19:36] LABS: Calcium 8.4 mg/dL (8.4-10.2)
[2021-03-06 19:52] LABS: Red Cell Distribution Width 20.3 % (13.2-15.2)
--- NOTE | 2021-03-06 21:12 | Progress Note ---
Assessment and Plan Assessment and plan: 55-year-old -Australian male with no significant past medical history was brought to the emergency room because of weakness and episodes of passing out over the past 2 days. Patient says that multiple times he has gotten up from being seated, or gotten out of his car, " I cannot make it more than 4 steps before I get weak or pass out." He denies any headache, vision change, slurred speech, numbness or paresthesias, chest pain. while seated and resting, the patient says that he is asymptomatic. He does not have a primary care physician. No recent travel or sick contacts at home. In the emergency room patient is found to have hemoglobin of 4.0 and hematocrit 13.4, also patient troponin is elevated 0.114.'s were going to admit the patient to the telemetry. Will consult GI. Patient is getting 3 unit of packed red blood cell, Protonix we also consult cardiology (1) Symptomatic iron deficiency anemia Current Visit: Yes Status: Acute Plan to address problem: Admit the patient to the medical telemetry. NPO. Normal saline at the rate of 100 cc/h. Protonix 40 mg IV every 12 hour. Patient received PRBC transfusions [id number], hemoglobin improved from 4-6.2. Continue hemoglobin checks every 6 hours and transfuse as needed to maintain hemoglobin 80.9 in view of NSTEMI. Iron panel is suggestive of severe iron deficiency. GI consulted and planning for endoscopy. (2) GI bleed with significant weight loss Current Visit: Yes Status: Acute Plan to address problem: Patient reports intermittent burgundy colored stool since 2 weeks or so. Patient also reports significant weight loss since several months. Patient reports recent BMs brown in color. However patient nurse reports that the patient had a tarry colored stool later this afternoon but not sent for occult blood test. NPO. Normal saline at the rate of 100 cc/h. Protonix 40 mg IV every [address] abdomen without contrast unremarkable. GI planning for endoscopy. (3) Elevated troponin/NSTEMI Current Visit: Yes Status: Acute Plan to address problem: Most likely secondary to anemia. Patient denies chest pains, palpitations or dyspnea. Denies history of CAD. Serial troponins 0.11, 0.14 and 0.14. Hemody namically stable. NSR. BP slight elevated. Placed on topical nitroglycerin and Lipitor 40 mg p.o. daily. Echocardiogram. Cardiology consulted and evaluating. Aspirin and anticoagulation contraindicated due to ongoing GI bleed and severe anemia. (4) KRISTOFER (acute kidney injury) Current Visit: Yes Status: Acute Plan to address problem: Creatinine 1.6 with unknown baseline. Normal saline at the rate of 100 cc/h. Avoid nephrotoxic drug. Renally dose medication. (5) Recurrent syncope, likely vasovagal from severe anemia Current Visit: Yes Status: Acute Plan to address problem: Hemodynamically stable in ED. NSR, BP slightly elevated. Normal saline at the rate of 100 cc/h. Echocardiogram. Cardiology evaluation (6) DVT prophylaxis Current Visit: Yes Status: Acute Plan to address problem: SCD for DVT prophylaxis. Protonix 40 mg IV every 12 hours for GI prophylaxis. Patient is a full code Discussed with patient and the nursing staff. History Interval history: Patient is currently alert and oriented without acute distress. Patient denies chest pains, dyspnea, palpitations, nausea or abdominal pains. Patient reports that he had a normal brown color BM before coming to the ED. Nurse reports that patient had a tarry looking BM late in the afternoon but not sent to lab for occult blood. Patient received PRBC transfusions x4 so far and last hemoglobin 6.2. Patient remains hemodynamically stable with BP slightly elevated, no tachycardia. Serial troponins 0.11, 0.14 and 0.14. Patient denies chest pains. Not a candidate for anticoagulation or aspirin. Receiving topical nitro glycerin and statin. Cardiology following. GI is planning for endoscopy. Patient does give history of significant weight loss. Hospitalist Physical - Constitutional Vitals: Temp Pulse Resp BP Pulse Ox 98.9 F 67 25 H 154/95 100 03/06/21 16:32 03/06/21 18:55 03/06/21 17:10 03/06/21 18:55 03/06/21 17:10 General appearance: Present: no acute distress, disheveled - EENT Eyes: Present: PERRL, EOM intact ENT: clear oral mucosa - Neck Neck: Present: supple - Respiratory Respiratory effort: normal Respiratory: bilateral: CTA - Cardiovascular Rhythm: regular - Extremities Extremities: No edema - Integumentary Integumentary: Absent: rash - Psychiatric Psychiatric: appropriate mood/affect - Neurologic Neurologic: no focal deficits HEART Score - HEART Score Troponin: Troponin T 0.144 ng/mL (0.00-0.029) H* 03/06/21 18:58 Results - Labs CBC & Chem 7: 03/07/21 04:28 03/07/21 04:28 Labs: Laboratory Last Values WBC 6.9 K/mm3 (4.5-11.0) 03/06/21 18:58 RBC 2.35 M/mm3 (3.65-5.03) L 03/06/21 18:58 Hgb 6.2 gm/dl (11.8-15.2) L 03/06/21 18:58 Hct 19.0 % (35.5-45.6) L* 03/06/21 18:58 MCV 81 fl (84-94) L 03/06/21 18:58 MCH 27 pg (28-32) L 03/06/21 18:58 MCHC 33 % (32-34) 03/06/21 18:58 RDW 20.3 % (13.2-15.2) H 03/06/21 18:58 Plt Count 165 K/mm3 (140-440) 03/06/21 18:58 Lymph % (Auto) 12.7 % (13.4-35.0) L 03/06/21 11:17 [place] % (Auto) 7.4 % (0.0-7.3) H 03/06/21 11:17 Eos % (Auto) 0.0 % (0.0-4.3) 03/06/21 11:17 Baso % (Auto) 0.3 % (0.0-1.8) 03/06/21 11:17 Lymph # (Auto) 0.9 K/mm3 (1.2-5.4) L 03/06/21 11:17 [place] # (Auto) 0.5 K/mm3 (0.0-0.8) 03/06/21 11:17 Eos # (Auto) 0.0 K/mm3 (0.0-0.4) 03/06/21 11:17 Baso # (Auto) 0.0 K/mm3 (0.0-0.1) 03/06/21 11:17 Add Manual Diff Complete 03/05/21 23:17 Total Counted 100 03/05/21 23:17 Seg Neutrophils % 79.6 % (40.0-70.0) H 03/06/21 11:17 Seg Neuts % (Manual) 96.0 % (40.0-70.0) H 03/05/21 23:17 Lymphocytes % (Manual) 3.0 % (13.4-35.0) L 03/05/21 23:17 Monocytes % (Manual) 1.0 % (0.0-7.3) 03/05/21 23:17 Nucleated RBC % Not Reportable 03/05/21 23:17 Seg Neutrophils # 5.6 K/mm3 (1.8-7.7) 03/06/21 11:17 Seg Neutrophils # Man 9.5 K/mm3 (1.8-7.7) H 03/05/21 23:17 Band Neutrophils # 0.0 K/mm3 03/05/21 23:17 Lymphocytes # (Manual) 0.3 K/mm3 (1.2-5.4) L 03/05/21 23:17 Abs React Lymphs (Man) 0.0 K/mm3 03/05/21 23:17 Monocytes # (Manual) 0.1 K/mm3 (0.0-0.8) 03/05/21 23:17 Eosinophils # (Manual) 0.0 K/mm3 (0.0-0.4) 03/05/21 23:17 Basophils # (Manual) 0.0 K/mm3 (0.0-0.1) 03/05/21 23:17 Metamyelocytes # 0.0 K/mm3 03/05/21 23:17 Myelocytes # 0.0 K/mm3 03/05/21 23:17 Promyelocytes # 0.0 K/mm3 03/05/21 23:17 Blast Cells # 0.0 K/mm3 03/05/21 23:17 WBC Morphology Not Reportable 03/05/21 23:17 Hypersegmented Neuts Not Reportable 03/05/21 23:17 Hyposegmented Neuts Not Reportable 03/05/21 23:17 Hypogranular Neuts Not Reportable 03/05/21 23:17 Smudge Cells Not Reportable 03/05/21 23:17 Toxic Granulation Not Reportable 03/05/21 23:17 Toxic Vacuolation Not Reportable 03/05/21 23:17 Dohle Bodies Not Reportable 03/05/21 23:17 Pelger-Huet Anomaly Not Reportable 03/05/21 23:17 Marianne Rods Not Reportable 03/05/21 23:17 Platelet Estimate Consistent w auto 03/05/21 23:17 Clumped Platelets Not Reportable 03/05/21 23:17 Plt Clumps, EDTA Not Reportable 03/05/21 23:17 Large Platelets Not Reportable 03/05/21 23:17 Giant Platelets Not Reportable 03/05/21 23:17 Platelet Satelliting Not Reportable 03/05/21 23:17 Plt Morphology Comment Not Reportable 03/05/21 23:17 RBC Morphology Not Reportable 03/05/21 23:17 Dimorphic RBCs Not Reportable 03/05/21 23:17 Polychromasia Not Reportable 03/05/21 23:17 Hypochromasia 2+ 03/05/21 23:17 Poikilocytosis Not Reportable 03/05/21 23:17 Anisocytosis 1+ 03/05/21 23:17 Microcytosis Not Reportable 03/05/21 23:17 Macrocytosis Not Reportable 03/05/21 23:17 Spherocytes Not Reportable 03/05/21 23:17 Pappenheimer Bodies Not Reportable 03/05/21 23:17 Sickle Cells Not Reportable 03/05/21 23:17 Target Cells Not Reportable 03/05/21 23:17 Tear Drop Cells Not Reportable 03/05/21 23:17 Ovalocytes Not Reportable 03/05/21 23:17 Helmet Cells Not Reportable 03/05/21 23:17 [place] Bodies Not Reportable 03/05/21 23:17 [place] Rings Not Reportable 03/05/21 23:17 [place] Cells Not Reportable 03/05/21 23:17 Bite Cells Not Reportable 03/05/21 23:17 Crenated Cell Not Reportable 03/05/21 23:17 Elliptocytes Not Reportable 03/05/21 23:17 Acanthocytes (Spur) Few 03/05/21 23:17 Rouleaux Not Reportable 03/05/21 23:17 Hemoglobin C Crystals Not Reportable 03/05/21 23:17 Schistocytes 1+ 03/05/21 23:17 Malaria parasites Not Reportable 03/05/21 23:17 Pan Bodies Not Reportable 03/05/21 23:17 Hem Pathologist Commnt No 03/05/21 23:17 Sodium 139 mmol/L (137-145) 03/06/21 18:58 Potassium 4.8 mmol/L (3.6-5.0) 03/06/21 18:58 Chloride 106.6 mmol/L (98-107) 03/06/21 18:58 Carbon Dioxide 23 mmol/L (22-30) 03/06/21 18:58 Anion Gap 14 mmol/L 03/06/21 18:58 BUN 49 mg/dL (9-20) H 03/06/21 18:58 Creatinine 1.6 mg/dL (0.8-1.3) H 03/06/21 18:58 Estimated GFR 55 ml/min 03/06/21 18:58 BUN/Creatinine Ratio 31 % 03/06/21 18:58 Glucose 89 mg/dL (75-100) 03/06/21 18:58 Hemoglobin A1c 5.1 % (4-6) 03/06/21 11:17 Calcium 8.4 mg/dL (8.4-10.2) 03/06/21 18:58 Magnesium 1.90 mg/dL (1.7-2.3) 03/06/21 18:58 Iron 9 ug/dL (49-181) L 03/06/21 11:17 TIBC 309 mcg/dL (250-450) 03/06/21 11:17 Ferritin 21.9 ng/mL (30.0-300.0) L 03/06/21 11:17 Total Bilirubin 0.30 mg/dL (0.1-1.2) 03/05/21 23:17 AST 12 units/L (5-40) 03/05/21 23:17 ALT 9 units/L (7-56) 03/05/21 23:17 Alkaline Phosphatase 79 units/L (35-129) 03/05/21 23:17 Troponin T 0.144 ng/mL (0.00-0.029) H* 03/06/21 18:58 Total Protein 6.2 g/dL (6.3-8.2) L 03/05/21 23:17 Albumin 3.4 g/dL (3.9-5) L 03/05/21 23:17 Albumin/Globulin Ratio 1.2 % 03/05/21 23:17 Triglycerides 82 mg/dL (2-149) 03/05/21 23:17 Cholesterol 107 mg/dL (50-199) 03/05/21 23:17 LDL Cholesterol Direct 53 mg/dL (50-130) 03/05/21 23:17 HDL Cholesterol 42 mg/dL (40-59) 03/05/21 23:17 Cholesterol/HDL Ratio 2.54 % 03/05/21 23:17 TSH 3.360 mlU/mL (0.270-4.200) 03/05/21 23:17 Blood Type O POSITIVE 03/05/21 23:50 Antibody Screen Negative 03/05/21 23:50 Crossmatch See Detail 03/05/21 23:50 Active Medications - Current Medications Current Medications: Generic Name Dose Route Start Last Admin Trade Name Freq PRN Reason Stop Dose Admin Acetaminophen 650 mg 03/06/21 02:47 Acetaminophen 325 Mg Tab PO Q6H PRN Pain, Mild (1-3) Atorvastatin Calcium 40 mg 03/06/21 22:00 Atorvastatin 40 Mg Tab PO QHS FRANKIE Dextrose/Sodium Chloride 1,000 mls @ 75 mls/hr 03/06/21 17:00 D5ns IV DIRECT FRANKIE Morphine Sulfate 2 mg 03/06/21 02:47 Morphine 4 Mg/1 Ml Inj IV Q5MIN PRN Chest Pain unrelieved by NTG Nitroglycerin 0.5 inch 03/06/21 17:00 03/06/21 18:55 Nitroglycerin 2% Oint 1 Gm TP 03/08/21 16:59 0.5 inch Q6H FRANKIE Administration Protocol Pantoprazole Sodium 40 mg 03/06/21 10:00 03/06/21 14:00 Pantoprazole 40 Mg Inj IV 40 mg BID FRANKIE Administration Sodium Chloride 10 ml 03/06/21 02:47 Sodium Chloride 0.9% 10 Ml Flush Syringe IV PRN PRN LINE FLUSH Tramadol HCl 50 mg 03/06/21 02:47 Tramadol 50 Mg Tab PO Q6H PRN Pain, Moderate (4-6)
--- NOTE | 2021-03-06 21:51 | XRay Report ---
CHEST 1 VIEW 03/06/2021 9:32 PM INDICATION / CLINICAL INFORMATION: Dyspnea, NSTEMI. COMPARISON: None available. FINDINGS: SUPPORT DEVICES: None. HEART / MEDIASTINUM: Cardiomegaly LUNGS / PLEURA: No significant pulmonary or pleural abnormality. No pneumothorax. ADDITIONAL FINDINGS: No significant additional findings. IMPRESSION: 1. Micheal, otherwise no acute cardiopulmonary abnormality. Signer Name: Ryan Harrison DO Signed: 03/06/2021 9:46 PM Workstation Name: [id number]
[2021-03-06 22:00] LABS: Anisocytosis 1+; Total Cells Counted 100
[2021-03-06 22:01] LABS: Hypochromasia 1+; Platelet Estimate Consistent w Auto
[2021-03-07 04:56] LABS: Hematocrit 18.7 % (35.5-45.6)
[2021-03-07 04:57] LABS: Hemoglobin 5.9 gm/dl (11.8-15.2)
[2021-03-07 05:33] LABS: Basophils % (Auto) 0.7 % (0.0-1.8); Eosinophils % (Auto) 0.6 % (0.0-4.3); Lymphocytes # (Auto) 0.7 K/mm3 (1.2-5.4); Mean Corpuscular HGB Conc 32 % (32-34); Mean Corpuscular Volume 82 fl (84-94); Monocytes # (Auto) 0.5 K/mm3 (0.0-0.8); Monocytes % (Auto) 8.6 % (0.0-7.3); Platelet Count 155 K/mm3 (140-440); Red Blood Count 2.12 M/mm3 (3.65-5.03); Red Cell Distribution Width 19.6 % (13.2-15.2)
[2021-03-07 05:41] LABS: Hematocrit 17.4 % (35.5-45.6); Hemoglobin 5.6 gm/dl (11.8-15.2)
[2021-03-07 06:05] LABS: Albumin 2.9 g/dL (3.9-5); Calcium 8.2 mg/dL (8.4-10.2)
[2021-03-07] MEDS: NITROGLYCERIN 2% OINT 1 GM TP SCH (06:55)
[2021-03-07] MEDS: D5W/0.9% NACL 1,000 ML IV SCH ×2 (06:59→21:21)
[2021-03-07] MEDS ORDERED: SODIUM CHLORIDE 0.9% 500 ML 500 ML IV NR (10:13)
[2021-03-07] MEDS: PANTOPRAZOLE 40 MG INJ IV SCH ×2 (10:30→21:32)
[2021-03-07] MEDS: hydrALAZINE 25 MG TAB PO SCH ×3 (10:30→21:15)
[2021-03-07] MEDS: carvediloL 6.25 MG TAB PO SCH ×2 (10:30→21:33)
--- NOTE | 2021-03-07 10:33 | Progress Note ---
Assessment and Plan Patient is 55-year-old -[place] male with no significant past medical history who came to the ED for complaint of weakness for 3 to 4 days Symptomatic Anemia-patient being transfused with PRBCs GI Bleed- GI following NSTEMI suspected type 2-likely result of severe anemia/ GI bleed KRISTOFER-creatinine 1.6 Cardiomyopathy HTN Tobacco use Echo 03/06/2021-EF 35 to 40%. Moderate global hypokinesis of left ventricle. Left atrium severely dilated. Right atrium mildly dilated. Right ventricle moderately dilated. Right ventricle is mildly hypokinetic Plan: EKG shows ectopic atrial rhythm rate 79, LVH, with nonspecific ST T abnormalities. No acute ischemic changes. Troponins 0.11-> 0.14->0.11 Per documentation patient for EGD tomorrow Patient has reduced EF but is currently well compensated Patient is a class II risk for procedure. No cardiac contraindications for procedure tomorrow No anticoagulation due to patient's severe anemia Initiate Coreg 6.25 mg p.o. twice daily, Imdur 30 mg p.o. daily, hydralazine 25 mg p.o. 3 times daily Patient seen in conjunction with Dr. Cervantes who agrees with this plan of care - Patient Problems (1) Tobacco use Current Visit: Yes Status: Acute (2) KRISTOFER (acute kidney injury) Current Visit: Yes Status: Acute (3) GI bleed Current Visit: Yes Status: Acute (4) NSTEMI (non-ST elevated myocardial infarction) Current Visit: Yes Status: Acute (5) Recurrent syncope Current Visit: Yes Status: Acute (6) Symptomatic anemia Current Visit: Yes Status: Acute Subjective Date of service: 03/07/21 Principal diagnosis: GI bleed, NSTEMI, Symptomatic anemia Interval history: Patient lying in bed in no acute distress Sinus 59 on monitor with PVCs Objective Vital Signs Temp Pulse Resp BP Pulse Ox 03/07/21 08:05 98.7 F 56 L 18 142/86 100 03/07/21 06:55 164/89 03/07/21 03:34 98.0 F 69 16 164/89 100 03/07/21 03:23 98 03/07/21 01:10 135/81 100 03/07/21 01:00 145/80 100 03/07/21 00:50 134/88 100 03/07/21 00:40 134/88 98 03/07/21 00:30 138/89 98 03/07/21 00:20 147/82 100 03/07/21 00:10 147/82 100 03/07/21 00:00 142/83 100 03/06/21 23:50 153/82 98 03/06/21 23:40 153/82 100 03/06/21 23:30 160/85 100 03/06/21 23:20 171/91 100 03/06/21 23:10 171/91 100 03/06/21 23:00 163/102 100 03/06/21 22:50 152/88 100 03/06/21 22:40 152/88 100 03/06/21 22:30 142/88 100 03/06/21 22:26 142/88 100 03/06/21 22:00 148/85 100 03/06/21 21:00 65 22 157/93 100 03/06/21 20:00 95 H 22 157/93 03/06/21 19:00 70 16 154/95 100 03/06/21 18:55 67 154/95 03/06/21 17:10 72 25 H 156/91 100 03/06/21 16:32 98.9 F 67 21 153/91 100 03/06/21 16:02 98.2 F 66 16 157/94 03/06/21 16:00 67 21 153/91 100 03/06/21 15:30 98.3 F 64 20 151/86 100 03/06/21 15:00 67 23 147/85 97 03/06/21 14:30 66 23 138/84 100 03/06/21 14:00 63 21 125/74 100 03/06/21 13:30 69 8 L 156/91 99 03/06/21 13:00 70 19 152/90 98 03/06/21 12:30 67 16 155/89 100 03/06/21 12:00 67 18 152/87 100 03/06/21 11:30 71 18 158/83 100 03/06/21 11:00 103 H 20 143/97 99 03/06/21 10:30 104 H 14 154/102 98 - Physical Examination General: No Apparent Distress HEENT: Positive: PERRL Neck: Positive: trachea midline Cardiac: Positive: Reg Rate and Rhythm Lungs: Positive: Normal Breath Sounds Neuro: Positive: Grossly Intact Abdomen: Positive: Soft Skin: Negative: Rash, Suspicious Lesions, Ulceration Extremities: Present: upper extr. pulses. Absent: edema - Labs and Meds Cardiac Enzymes 03/07/21 Range/Units 04:28 AST 12 (5-40) units/L CBC 03/06/21 03/06/21 03/06/21 Range/Units 11:17 18:58 22:51 WBC 7.0 6.9 (4.5-11.0) K/mm3 RBC 2.33 L 2.35 L (3.65-5.03) M/mm3 Hgb 6.1 L 6.2 L 5.9 L* (11.8-15.2) gm/dl Hct 19.0 L* 19.0 L* 18.7 L* (35.5-45.6) % Plt Count 195 165 (140-440) K/mm3 Lymph # (Auto) 0.9 L (1.2-5.4) K/mm3 [place] # (Auto) 0.5 (0.0-0.8) K/mm3 Eos # (Auto) 0.0 (0.0-0.4) K/mm3 Baso # (Auto) 0.0 (0.0-0.1) K/mm3 03/07/21 Range/Units 04:28 WBC 5.8 (4.5-11.0) K/mm3 RBC 2.12 L (3.65-5.03) M/mm3 Hgb 5.6 L* (11.8-15.2) gm/dl Hct 17.4 L* (35.5-45.6) % Plt Count 155 (140-440) K/mm3 Lymph # (Auto) 0.7 L (1.2-5.4) K/mm3 [place] # (Auto) 0.5 (0.0-0.8) K/mm3 Eos # (Auto) 0.0 (0.0-0.4) K/mm3 Baso # (Auto) 0.0 (0.0-0.1) K/mm3 Comprehensive Metabolic Panel 03/06/21 03/06/21 03/07/21 Range/Units 11:17 18:58 04:28 Sodium 139 139 141 (137-145) mmol/L Potassium 5.8 H D 4.8 4.1 (3.6-5.0) mmol/L Chloride 106.2 106.6 108.2 H (98-107) mmol/L Carbon Dioxide 28 D 23 25 (22-30) mmol/L BUN 50 H 49 H 47 H (9-20) mg/dL Creatinine 1.6 H 1.6 H 1.6 H (0.8-1.3) mg/dL Glucose 97 89 90 (75-100) mg/dL Calcium 8.7 8.4 8.2 L (8.4-10.2) mg/dL AST 12 (5-40) units/L ALT 8 (7-56) units/L Alkaline Phosphatase 65 (35-129) units/L Total Protein 5.0 L (6.3-8.2) g/dL Albumin 2.9 L (3.9-5) g/dL - Imaging and Cardiology Echo: report reviewed - Telemetry EKG Rhythm: Sinus Rhythm - EKG Sinus rhythms and dysrhythmias: sinus rhythm Chamber hypertrophy or enlargement: left ventricular hypertro
--- NOTE | 2021-03-07 12:27 | Electrocardiograph Report ---
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
[2021-03-07] MEDS ORDERED: POLYETHYLENE GLYCOL/ELECT SOLN 4000 ML PO ONE (15:31)
--- NOTE | 2021-03-07 15:33 | Gastroenterology Progress Note ---
Assessment and Plan # GI bleed # Symptomatic anemia - suspect lower GI bleed. - iron deficiency anemia noted. Hgb at 4 on admission. went to 6 post 2 units of PRBCs. - HD stable. - CT without contrast without acute findings. Rec - monitor H/H and transfuse with Hgb goal >7. - PPI IV. - will plan for EGD/colonoscopy tomorrow. - cardiology on board for NSTEMI. request cardiac clearance. - clear liquids. Bowel prep with Golytely - in case of an active bleeding requiring emergent endoscopy, would need to transfer to another facility. - Patient Problems (1) GI bleed Current Visit: Yes Status: Acute (2) Symptomatic anemia Current Visit: Yes Status: Acute Subjective Date of service: 03/07/21 Principal diagnosis: GI bleed, NSTEMI, Symptomatic anemia Interval history: Patient with one dark brown stool overnight. Receiving blood transfusion. no abdominal pain or chest pain. Objective - Constitutional Vitals: Temp Pulse Resp BP Pulse Ox 98.7 F 56 L 18 142/86 100 03/07/21 08:05 03/07/21 08:05 03/07/21 08:05 03/07/21 08:05 03/07/21 08:05 General appearance: no acute distress - EENT Eyes: EOM intact ENT: hearing intact - Respiratory Respiratory effort: normal - Cardiovascular Rhythm: regular Heart Sounds: Present: S1 & S2 - Gastrointestinal General gastrointestinal: Present: soft, non-tender, non-distended Rectal Exam: stool brown - Labs CBC & Chem 7: 03/07/21 04:28 03/07/21 04:28 Labs: Laboratory Results - last 24 hr 03/05/21 03/06/21 03/06/21 23:50 18:58 18:58 WBC 6.9 RBC 2.35 L Hgb 6.2 L Hct 19.0 L* MCV 81 L MCH 27 L MCHC 33 RDW 20.3 H Plt Count 165 Lymph % (Auto) [place] % (Auto) Eos % (Auto) Baso % (Auto) Lymph # (Auto) [place] # (Auto) Eos # (Auto) Baso # (Auto) Add Manual Diff Complete Total Counted 100 Seg Neutrophils % Seg Neuts % (Manual) 91.0 H Lymphocytes % (Manual) 7.0 L Monocytes % (Manual) 2.0 Nucleated RBC % Not Reportable Seg Neutrophils # Seg Neutrophils # Man 6.3 Band Neutrophils # 0.0 Lymphocytes # (Manual) 0.5 L Abs React Lymphs (Man) 0.0 Monocytes # (Manual) 0.1 Eosinophils # (Manual) 0.0 Basophils # (Manual) 0.0 Metamyelocytes # 0.0 Myelocytes # 0.0 Promyelocytes # 0.0 Blast Cells # 0.0 WBC Morphology Not Reportable Hypersegmented Neuts Not Reportable Hyposegmented Neuts Not Reportable Hypogranular Neuts Not Reportable Smudge Cells Not Reportable Toxic Granulation Not Reportable Toxic Vacuolation Not Reportable Dohle Bodies Not Reportable Pelger-Huet Anomaly Not Reportable Marianne Rods Not Reportable Platelet Estimate Consistent w auto Clumped Platelets Not Reportable Plt Clumps, EDTA Not Reportable Large Platelets Not Reportable Giant Platelets Not Reportable Platelet Satelliting Not Reportable Plt Morphology Comment Not Reportable RBC Morphology Not Reportable Dimorphic RBCs Not Reportable Polychromasia Not Reportable Hypochromasia 1+ Poikilocytosis Not Reportable Anisocytosis 1+ Microcytosis Not Reportable Macrocytosis Not Reportable Spherocytes Not Reportable Pappenheimer Bodies Not Reportable Sickle Cells Not Reportable Target Cells Not Reportable Tear Drop Cells Not Reportable Ovalocytes Not Reportable Helmet Cells Not Reportable [place] Bodies Not Reportable [place] Rings Not Reportable Rhina Cells Not Reportable Bite Cells Not Reportable Crenated Cell Not Reportable Elliptocytes Not Reportable Acanthocytes (Spur) Not Reportable Rouleaux Not Reportable Hemoglobin C Crystals Not Reportable Schistocytes Not Reportable Malaria parasites Not Reportable Pan Bodies Not Reportable Hem Pathologist Commnt No Sodium 139 Potassium 4.8 Chloride 106.6 Carbon Dioxide 23 Anion Gap 14 BUN 49 H Creatinine 1.6 H Estimated GFR 55 BUN/Creatinine Ratio 31 Glucose 89 Calcium 8.4 Magnesium 1.90 Total Bilirubin AST ALT Alkaline Phosphatase Troponin T 0.144 H* NT-Pro-B Natriuret Pep Total Protein Albumin Albumin/Globulin Ratio Blood Type O POSITIVE Antibody Screen Negative Crossmatch See Detail 03/06/21 03/07/21 03/07/21 22:51 04:28 04:28 WBC 5.8 RBC 2.12 L Hgb 5.9 L* 5.6 L* Hct 18.7 L* 17.4 L* MCV 82 L MCH 27 L MCHC 32 RDW 19.6 H Plt Count 155 Lymph % (Auto) 12.0 L [place] % (Auto) 8.6 H Eos % (Auto) 0.6 Baso % (Auto) 0.7 Lymph # (Auto) 0.7 L [place] # (Auto) 0.5 Eos # (Auto) 0.0 Baso # (Auto) 0.0 Add Manual Diff Total Counted Seg Neutrophils % 78.1 H Seg Neuts % (Manual) Lymphocytes % (Manual) Monocytes % (Manual) Nucleated RBC % Seg Neutrophils # 4.5 Seg Neutrophils # Man Band Neutrophils # Lymphocytes # (Manual) Abs React Lymphs (Man) Monocytes # (Manual) Eosinophils # (Manual) Basophils # (Manual) Metamyelocytes # Myelocytes # Promyelocytes # Blast Cells # WBC Morphology Hypersegmented Neuts Hyposegmented Neuts Hypogranular Neuts Smudge Cells Toxic Granulation Toxic Vacuolation Dohle Bodies Pelger-Huet Anomaly Marianne Rods Platelet Estimate Clumped Platelets Plt Clumps, EDTA Large Platelets Giant Platelets Platelet Satelliting Plt Morphology Comment RBC Morphology Dimorphic RBCs Polychromasia Hypochromasia Poikilocytosis Anisocytosis Microcytosis Macrocytosis Spherocytes Pappenheimer Bodies Sickle Cells Target Cells Tear Drop Cells Ovalocytes Helmet Cells [place] Bodies [place] Rings [place] Cells Bite Cells Crenated Cell Elliptocytes Acanthocytes (Spur) Rouleaux Hemoglobin C Crystals Schistocytes Malaria parasites Pan Bodies Hem Pathologist Commnt Sodium 141 Potassium 4.1 Chloride 108.2 H Carbon Dioxide 25 Anion Gap 12 BUN 47 H Creatinine 1.6 H Estimated GFR 55 BUN/Creatinine Ratio 29 Glucose 90 Calcium 8.2 L Magnesium 1.90 Total Bilirubin 0.50 AST 12 ALT 8 Alkaline Phosphatase 65 Troponin T 0.115 H* D NT-Pro-B Natriuret Pep 2227 H Total Protein 5.0 L Albumin 2.9 L Albumin/Globulin Ratio 1.4 Blood Type Antibody Screen Crossmatch
--- NOTE | 2021-03-07 17:29 | Progress Note ---
Assessment and Plan Assessment and plan: 55-year-old -Thai male with no significant past medical history was brought to the emergency room because of weakness and episodes of passing out over the past 2 days. Patient says that multiple times he has gotten up from being seated, or gotten out of his car, " I cannot make it more than 4 steps before I get weak or pass out." He denies any headache, vision change, slurred speech, numbness or paresthesias, chest pain. while seated and resting, the patient says that he is asymptomatic. He does not have a primary care physician. No recent travel or sick contacts at home. In the emergency room patient is found to have hemoglobin of 4.0 and hematocrit 13.4, also patient troponin is elevated 0.114.'s were going to admit the patient to the telemetry. Will consult GI. Patient is getting 3 unit of packed red blood cell, Protonix we also consult cardiology (1) Symptomatic iron deficiency anemia Current Visit: Yes Status: Acute Plan to address problem: Continue Protonix 40 mg IV every 12 hour. Patient received PRBC transfusions x4, hemoglobin improved from 4-6.2. However, hemoglobin keeps dropping, dropped to 5.6 this morning and ordered 2 more units of PRBC. Patient currently fairly asymptomatic. Continue hemoglobin checks every 6 hours and transfuse as needed to maintain hemoglobin 8-9 in view of NSTEMI. Iron panel is suggestive of severe iron deficiency. GI consulted and planning for endoscopy. (2) GI bleed with significant weight loss Current Visit: Yes Status: Acute Plan to address problem: Patient reports intermittent burgundy colored stool since 2 weeks or so. Patient also reports significant weight loss since several months. Patient repo rts recent BMs brown in color before admission. However patient nurse reports that the patient had a tarry colored stool on 03/06 but not sent for occult blood test. Tolerating clear liquids. Asymptomatic and hemodynamically stable. Normal saline at the rate of 100 cc/h. Protonix 40 mg IV every [address] abdomen without contrast unremarkable. GI planning for endoscopy. (3) Elevated troponin/NSTEMI Current Visit: Yes Status: Acute Plan to address problem: Most likely triggered by severe anemia. Patient denies chest pains, palpitations or dyspnea. Denies history of CAD. Serial troponins 0.11, 0.14 and 0.14. Today 0.11. Hemodynamically stable. NSR. BP slightly elevated. Echo shows dilated cardiomyopathy with severe LVH, LV mildly dilated, moderate global LV hypokinesis with EF 35 to 40%, diastolic dysfunction present, RV moderately dilated with mild hypokinesis, RV mildly dilated and LVH severely dilated. No valvular dysfunction. Cardiology consulted and evaluating. Started on heart failure and ischemic regimen. Aspirin and anticoagulation contraindicated due to ongoing GI bleed and severe anemia. Will need ischemic evaluation once her GI bleed resolves. Remains surprisingly asymptomatic and hemodynamically stable in the setting of severe anemia. (4) KRISTOFER versus CKD Current Visit: Yes Status: Acute Plan to address problem: Creatinine 1.7 and 1.6 with no further improvement and unknown baseline. Will obtain UA and renal ultrasound. Normal saline at the rate of 100 cc/h. Avoid hypotension and nephrotoxic drug. Renally dose medication. (5) Recurrent syncope, likely vasovagal from severe anemia Current Visit: Yes Status: Acute Plan to address problem: Hemodynamically stable in ED. NSR, BP slightly elevated. Currently no lightheadedness/dizziness with ambulation. Normal saline at the rate of 100 cc/h. (6) DVT prophylaxis Current Visit: Yes Status: Acute Plan to address problem: SCD for DVT prophylaxis. Protonix 40 mg IV every 12 hours for GI prophylaxis. Patient is a full code Discussed with patient, cardiology, GI and the nursing staff. History Interval history: Patient remains asymptomatic and hemodynamically stable despite of severe anemia. Denies chest pains, palpitations or dyspnea. Denies lightheade dness/dizziness with ambulation. Mild troponin elevation is trending down. Patient had a tarry colored BM x1 yesterday but none since. Denies nausea or abdominal pain. Tolerating liquid diet. Hemoglobin continues to drop in spite of transfusions, x4 so far, hemoglobin today 5.6 and ordered 2 more units of PRBC transfusions. Remains on IV PPI, GI endoscopy could not be performed today due to nonavailability of anesthesia services. Echocardiogram today shows four- chamber dilatation with LVEF 35 to 40%. Heart failure regimen initiated. Hospitalist Physical - Constitutional Vitals: Temp Pulse Resp BP Pulse Ox 98.0 F 56 L 18 126/79 100 03/07/21 15:26 03/07/21 15:26 03/07/21 15:26 03/07/21 15:26 03/07/21 15:26 General appearance: Present: no acute distress, disheveled, other (Alert and oriented) - EENT Eyes: Present: PERRL ENT: clear oral mucosa - Neck Neck: Present: supple - Respiratory Respiratory effort: normal Respiratory: bilateral: CTA - Cardiovascular Rhythm: regular - Extremities Extremities: No edema - Abdominal General gastrointestinal: soft, non-tender, non-distended, normal bowel sounds - Integumentary Integumentary: Absent: rash - Psychiatric Psychiatric: appropriate mood/affect - Neurologic Neurologic: no focal deficits, other (Fully alert and oriented) HEART Score - HEART Score Troponin: Troponin T 0.115 ng/mL (0.00-0.029) H* D 03/07/21 04:28 Results - Labs CBC & Chem 7: 03/07/21 04:28 03/07/21 04:28 Labs: Laboratory Last Values WBC 5.8 K/mm3 (4.5-11.0) 03/07/21 04:28 RBC 2.12 M/mm3 (3.65-5.03) L 03/07/21 04:28 Hgb 5.6 gm/dl (11.8-15.2) L* 03/07/21 04:28 Hct 17.4 % (35.5-45.6) L* 03/07/21 04:28 MCV 82 fl (84-94) L 03/07/21 04:28 MCH 27 pg (28-32) L 03/07/21 04:28 MCHC 32 % (32-34) 03/07/21 04:28 RDW 19.6 % (13.2-15.2) H 03/07/21 04:28 Plt Count 155 K/mm3 (140-440) 03/07/21 04:28 Lymph % (Auto) 12.0 % (13.4-35.0) L 03/07/21 04:28 [place] % (Auto) 8.6 % (0.0-7.3) H 03/07/21 04:28 Eos % (Auto) 0.6 % (0.0-4.3) 03/07/21 04:28 Baso % (Auto) 0.7 % (0.0-1.8) 03/07/21 04:28 Lymph # (Auto) 0.7 K/mm3 (1.2-5.4) L 03/07/21 04:28 [place] # (Auto) 0.5 K/mm3 (0.0-0.8) 03/07/21 04:28 Eos # (Auto) 0.0 K/mm3 (0.0-0.4) 03/07/21 04:28 Baso # (Auto) 0.0 K/mm3 (0.0-0.1) 03/07/21 04:28 Add Manual Diff Complete 03/06/21 18:58 Total Counted 100 03/06/21 18:58 Seg Neutrophils % 78.1 % (40.0-70.0) H 03/07/21 04:28 Seg Neuts % (Manual) 91.0 % (40.0-70.0) H 03/06/21 18:58 Lymphocytes % (Manual) 7.0 % (13.4-35.0) L 03/06/21 18:58 Monocytes % (Manual) 2.0 % (0.0-7.3) 03/06/21 18:58 Nucleated RBC % Not Reportable 03/06/21 18:58 Seg Neutrophils # 4.5 K/mm3 (1.8-7.7) 03/07/21 04:28 Seg Neutrophils # Man 6.3 K/mm3 (1.8-7.7) 03/06/21 18:58 Band Neutrophils # 0.0 K/mm3 03/06/21 18:58 Lymphocytes # (Manual) 0.5 K/mm3 (1.2-5.4) L 03/06/21 18:58 Abs React Lymphs (Man) 0.0 K/mm3 03/06/21 18:58 Monocytes # (Manual) 0.1 K/mm3 (0.0-0.8) 03/06/21 18:58 Eosinophils # (Manual) 0.0 K/mm3 (0.0-0.4) 03/06/21 18:58 Basophils # (Manual) 0.0 K/mm3 (0.0-0.1) 03/06/21 18:58 Metamyelocytes # 0.0 K/mm3 03/06/21 18:58 Myelocytes # 0.0 K/mm3 03/06/21 18:58 Promyelocytes # 0.0 K/mm3 03/06/21 18:58 Blast Cells # 0.0 K/mm3 03/06/21 18:58 WBC Morphology Not Reportable 03/06/21 18:58 Hypersegmented Neuts Not Reportable 03/06/21 18:58 Hyposegmented Neuts Not Reportable 03/06/21 18:58 Hypogranular Neuts Not Reportable 03/06/21 18:58 Smudge Cells Not Reportable 03/06/21 18:58 Toxic Granulation Not Reportable 03/06/21 18:58 Toxic Vacuolation Not Reportable 03/06/21 18:58 Dohle Bodies Not Reportable 03/06/21 18:58 Pelger-Huet Anomaly Not Reportable 03/06/21 18:58 Marianne Rods Not Reportable 03/06/21 18:58 Platelet Estimate Consistent w auto 03/06/21 18:58 Clumped Platelets Not Reportable 03/06/21 18:58 Plt Clumps, EDTA Not Reportable 03/06/21 18:58 Large Platelets Not Reportable 03/06/21 18:58 Giant Platelets Not Reportable 03/06/21 18:58 Platelet Satelliting Not Reportable 03/06/21 18:58 Plt Morphology Comment Not Reportable 03/06/21 18:58 RBC Morphology Not Reportable 03/06/21 18:58 Dimorphic RBCs Not Reportable 03/06/21 18:58 Polychromasia Not Reportable 03/06/21 18:58 Hypochromasia 1+ 03/06/21 18:58 Poikilocytosis Not Reportable 03/06/21 18:58 Anisocytosis 1+ 03/06/21 18:58 Microcytosis Not Reportable 03/06/21 18:58 Macrocytosis Not Reportable 03/06/21 18:58 Spherocytes Not Reportable 03/06/21 18:58 Pappenheimer Bodies Not Reportable 03/06/21 18:58 Sickle Cells Not Reportable 03/06/21 18:58 Target Cells Not Reportable 03/06/21 18:58 Tear Drop Cells Not Reportable 03/06/21 18:58 Ovalocytes Not Reportable 03/06/21 18:58 Helmet Cells Not Reportable 03/06/21 18:58 [place] Bodies Not Reportable 03/06/21 18:58 [place] Rings Not Reportable 03/06/21 18:58 Rhina Cells Not Reportable 03/06/21 18:58 Bite Cells Not Reportable 03/06/21 18:58 Crenated Cell Not Reportable 03/06/21 18:58 Elliptocytes Not Reportable 03/06/21 18:58 Acanthocytes (Spur) Not Reportable 03/06/21 18:58 Rouleaux Not Reportable 03/06/21 18:58 Hemoglobin C Crystals Not Reportable 03/06/21 18:58 Schistocytes Not Reportable 03/06/21 18:58 Malaria parasites Not Reportable 03/06/21 18:58 Pan Bodies Not Reportable 03/06/21 18:58 Hem Pathologist Commnt No 03/06/21 18:58 Sodium 141 mmol/L (137-145) 03/07/21 04:28 Potassium 4.1 mmol/L (3.6-5.0) 03/07/21 04:28 Chloride 108.2 mmol/L (98-107) H 03/07/21 04:28 Carbon Dioxide 25 mmol/L (22-30) 03/07/21 04:28 Anion Gap 12 mmol/L 03/07/21 04:28 BUN 47 mg/dL (9-20) H 03/07/21 04:28 Creatinine 1.6 mg/dL (0.8-1.3) H 03/07/21 04:28 Estimated GFR 55 ml/min 03/07/21 04:28 BUN/Creatinine Ratio 29 % 03/07/21 04:28 Glucose 90 mg/dL (75-100) 03/07/21 04:28 Hemoglobin A1c 5.1 % (4-6) 03/06/21 11:17 Calcium 8.2 mg/dL (8.4-10.2) L 03/07/21 04:28 Magnesium 1.90 mg/dL (1.7-2.3) 03/07/21 04:28 Iron 9 ug/dL (49-181) L 03/06/21 11:17 TIBC 309 mcg/dL (250-450) 03/06/21 11:17 Ferritin 21.9 ng/mL (30.0-300.0) L 03/06/21 11:17 Total Bilirubin 0.50 mg/dL (0.1-1.2) 03/07/21 04:28 AST 12 units/L (5-40) 03/07/21 04:28 ALT 8 units/L (7-56) 03/07/21 04:28 Alkaline Phosphatase 65 units/L (35-129) 03/07/21 04:28 Troponin T 0.115 ng/mL (0.00-0.029) H* D 03/07/21 04:28 NT-Pro-B Natriuret Pep 2227 pg/mL (0-900) H 03/07/21 04:28 Total Protein 5.0 g/dL (6.3-8.2) L 03/07/21 04:28 Albumin 2.9 g/dL (3.9-5) L 03/07/21 04:28 Albumin/Globulin Ratio 1.4 % 03/07/21 04:28 Triglycerides 82 mg/dL (2-149) 03/05/21 23:17 Cholesterol 107 mg/dL (50-199) 03/05/21 23:17 LDL Cholesterol Direct 53 mg/dL (50-130) 03/05/21 23:17 HDL Cholesterol 42 mg/dL (40-59) 03/05/21 23:17 Cholesterol/HDL Ratio 2.54 % 03/05/21 23:17 TSH 3.360 mlU/mL (0.270-4.200) 03/05/21 23:17 Blood Type O POSITIVE 03/05/21 23:50 Antibody Screen Negative 03/05/21 23:50 Crossmatch See Detail 03/05/21 23:50 Muñoz/IV: Voiding Method Toilet Active Medications - Current Medications Current Medications: Generic Name Dose Route Start Last Admin Trade Name Freq PRN Reason Stop Dose Admin Acetaminophen 650 mg 03/06/21 02:47 Acetaminophen 325 Mg Tab PO Q6H PRN Pain, Mild (1-3) Atorvastatin Calcium 40 mg 03/06/21 22:00 03/06/21 22:49 Atorvastatin 40 Mg Tab PO 40 mg QHS FRANKIE Administration Carvedilol 6.25 mg 03/07/21 10:00 03/07/21 10:30 Carvedilol 6.25 Mg Tab PO 6.25 mg BID FRANKIE Administration Hydralazine HCl 25 mg 03/07/21 09:00 03/07/21 10:30 Hydralazine 25 Mg Tab PO 25 mg Q8HR FRANKIE Administration Dextrose/Sodium Chloride 1,000 mls @ 75 mls/hr 03/06/21 17:00 03/07/21 06:59 D5ns IV 75 mls/hr DIRECT FRANKIE Administration Sodium Chloride 500 mls @ 0 mls/hr 03/07/21 10:13 Nacl 0.9% 500 Ml IV 03/07/21 20:00 ONCE NR As Directed Isosorbide Mononitrate 30 mg 03/07/21 10:00 03/07/21 10:30 Isosorbide Mononitrate Er 30 Mg Tab PO 30 mg QDAY FRANKIE Administration Morphine Sulfate 2 mg 03/06/21 02:47 Morphine 4 Mg/1 Ml Inj IV Q5MIN PRN Chest Pain unrelieved by NTG Pantoprazole Sodium 40 mg 03/06/21 10:00 03/07/21 10:30 Pantoprazole 40 Mg Inj IV 40 mg BID FRANKIE Administration Sodium Chloride 10 ml 03/06/21 02:47 Sodium Chloride 0.9% 10 Ml Flush Syringe IV PRN PRN LINE FLUSH Tramadol HCl 50 mg 03/06/21 02:47 Tramadol 50 Mg Tab PO Q6H PRN Pain, Moderate (4-6)
[2021-03-08] MEDS: hydrALAZINE 25 MG TAB PO SCH ×3 (05:37→22:05)
[2021-03-08] MEDS ORDERED: SODIUM CHLORIDE 0.9% 1000 ML 1,000 ML ONE (08:52)
--- NOTE | 2021-03-08 09:04 | Anesthesia Day of Surgery ---
Anesthesia Day of Surgery - Day of Surgery Patient Examined: Yes Patient H&P Reviewed: Yes Patient is NPO: Yes
--- NOTE | 2021-03-08 09:07 | Anesthesia Consultation ---
Anesthesia Consult and Med Hx Date of service: 03/08/21 - Airway Anesthetic Teeth Evaluation: Good ROM Head & Neck: Adequate Mental/Hyoid Distance: Adequate Mallampati Class: Class I - Pre-Operative Health Status ASA Pre-Surgery Classification: ASA3 Proposed Anesthetic Plan: MAC - Pulmonary Hx Smoking: Yes Hx Sleep Apnea: No - Cardiovascular System Hx Hypertension: Yes Hx Coronary Artery Disease: Yes (Elevated troponins on admission) - Gastrointestinal Hx Ulcer: Yes (GI bleed) - Endocrine Hx Renal Disease: Yes (KRISTOFER) - Hematic Hx Anemia: Yes Hx Sickle Cell Disease: No - Other Systems Hx Alcohol Use: No Hx Obesity: No - Additional Comments Anesthesia Medical History Comments: Echo 03/06/2021-EF 35 to 40%. Moderate global hypokinesis of left ventricle. Left atrium severely dilated. Right atrium mildly dilated. Right ventricle moderately dilated. Right ventricle is mildly hypokinetic
[2021-03-08] MEDS ORDERED: KETAMINE/STERILE WATER 50 MG/ML SYRINGE ONE (09:16)
[2021-03-08] MEDS ORDERED: propofoL 200 MG/20 ML VIAL IV ONE (09:16)
[2021-03-08] MEDS ORDERED: MIDAZOLAM 2 MG/2 ML INJ ONE (09:16)
[2021-03-08] MEDS ORDERED: GLYCOPYRROLATE 0.4 MG/2 ML INJ ONE (09:16)
--- NOTE | 2021-03-08 09:43 | Operative Report ---
Operative Report Operative Report: Colonoscopy Colonoscopy: Procedure: Colonoscopy Endoscopist: Poncho Corea MD Pre-operative Diagnosis/Indications:GI bleed, anemia Post-operative Diagnosis: History:See consult note Sedation:MAC Procedure Details: Indications, risks, and benefits were explained and consent was obtained. Pt was placed in the left lateral decubitus position and sedated. Video colonoscope was inserted thru the anus after digital exam, and advanced with the intent to reach cecum but aborted after reaching the transverse w ithdifficulty due to poor prep. Scope was then gradually withdrawn with close inspection of the mucosa. Prep was poor. Findings: 1. Poor prep with solid stools. Old melena and blood in the left colon. Procedure aborted after reaching transverse colon due to solid stools. 2. No active bleeding noted. 3. Anemia and bleeding likely due to duodenal ulcer found on EGD. Specimens:none Complications:None; patient tolerated the procedure well. Recommendations: 1. Resume clear liquids. 2. Monitor H/H and transfuse as needed. 3. ok for discharge per GI standpoint tomorrow if H/H stable and no signs of active recurrent bleeding. Follow up outpatient for repeat colonoscopy.
--- NOTE | 2021-03-08 09:43 | Operative Report ---
Operative Report Operative Report: EGD report Date: 03/08/2021 Endoscopist: Poncho Corea MD (Jenny) EGD REPORT PREOPERATIVE DIAGNOSIS: GI bleed, anemia POSTOPERATIVE DIAGNOSIS:duodenal bulb ulcer, gastritis ESTIMATED BLOOD LOSS:minimal DESCRIPTION OF PROCEDURE: A high-resolution EGD scope was passed through the oropharynx, esophagus, stomach, andjejunum. The scope was carefully withdrawn. Retroflexion was performed in the stomach. At the end of the procedure, the scope was cleaned using normal technique. Vital signs monitored continuously throughout. SEDATION: Provided by Anesthesiology Services. COMPLICATIONS: None. FINDINGS: 1. A 1 cm clean based ulcer with surrounding edema without high risk stigmata in the duodenal bulb. Biopsies obtained. 2. Moderate gastritis with erythema and edema in the antrum and gastric body. Biopsies obtained. 3. Normal esophagus exam. 4. No blood seen throughout the exam RECOMMENDATIONS: 1. Continue with PPI IV bid. Transition to PO bid dosing tomorrow once H/H stable. 2. Proceed with colonoscopy. Poncho Corea MD (Jenny) [facility]
--- NOTE | 2021-03-08 09:53 | Post Anesthesia Evaluation ---
- Post Anesthesia Evaluation Patient Participated: Yes Airway Patent: Yes Stable Respiratory Function: Yes Nausea/Vomiting: No Temp > 96.8F: Yes Pain Manageable: Yes Adequeate Hydration: Yes Anesthesia Complications: No Block Receding Appropriately: Not Applicable Patient on Ventilator: No
--- NOTE | 2021-03-08 10:33 | Progress Note ---
Assessment and Plan Patient is 55-year-old -Malagasy male with no significant past medical history who came to the ED for complaint of weakness for 3 to 4 days Symptomatic Anemia-patient being transfused with PRBCs GI Bleed- GI following NSTEMI suspected type 2-likely result of severe anemia/ GI bleed KRISTOFER-creatinine 1.6 Cardiomyopathy HTN Tobacco use Echo 03/06/2021-EF 35 to 40%. Moderate global hypokinesis of left ventricle. Left atrium severely dilated. Right atrium mildly dilated. Right ventricle moderately dilated. Right ventricle is mildly hypokinetic Plan: Per converastion with GI patient found to have nonbleeding duodenal ulcer No anticoagulation due to patient's severe anemia Continue Coreg 6.25 mg p.o. twice daily, Imdur 30 mg p.o. daily, hydralazine 25 mg p.o. 3 times daily Patient has not had any complaints of chest pain. Patient to have ischemic eval as an outpatient and once H&H stable Patient seen in conjunction with Dr. Cervantes who agrees with this plan of care - Patient Problems (1) Tobacco use Current Visit: Yes Status: Acute (2) KRISTOFER (acute kidney injury) Current Visit: Yes Status: Acute (3) GI bleed Current Visit: Yes Status: Acute (4) NSTEMI (non-ST elevated myocardial infarction) Current Visit: Yes Status: Acute (5) Recurrent syncope Current Visit: Yes Status: Acute (6) Symptomatic anemia Current Visit: Yes Status: Acute Subjective Date of service: 03/08/21 Principal diagnosis: GI bleed, NSTEMI, Symptomatic anemia Interval history: Patient for EGD this AM Trending Sinus 60s on monitor Objective Vital Signs Temp Pulse Resp BP Pulse Ox 03/08/21 10:10 62 18 140/88 100 03/08/21 10:00 60 18 134/88 100 03/08/21 09:55 56 L 16 134/83 100 03/08/21 09:50 55 L 16 127/82 100 03/08/21 09:44 97.2 F L 58 L 16 125/79 100 03/08/21 07:35 98.4 F 69 18 143/81 100 03/08/21 05:37 68 164/101 03/08/21 03:41 98.0 F 68 16 164/101 03/08/21 03:40 98.0 F 64 16 140/79 100 03/08/21 03:00 100 03/08/21 01:26 98.3 F 55 L 19 140/82 100 03/07/21 23:46 97.7 F 61 18 136/90 100 03/07/21 23:01 97.4 F L 59 L 19 142/92 100 03/07/21 22:31 97.7 F 61 18 149/88 100 03/07/21 22:16 97.5 F L 61 18 143/92 100 03/07/21 22:00 57 L 03/07/21 21:33 58 L 141/95 03/07/21 21:15 58 L 141/95 03/07/21 19:14 98.7 F 58 L 16 141/95 100 03/07/21 17:30 97.5 F L 61 18 142/92 100 03/07/21 15:26 98.0 F 56 L 18 126/79 100 03/07/21 15:23 100 03/07/21 14:35 98.2 F 70 16 154/80 99 03/07/21 14:20 98.3 F 66 18 153/78 100 03/07/21 14:02 98.2 F 69 18 152/80 99 03/07/21 13:47 98.0 F 66 16 150/82 100 03/07/21 13:20 97 03/07/21 13:10 96 03/07/21 13:00 97 03/07/21 12:50 98 03/07/21 12:40 97 03/07/21 12:38 100 03/07/21 11:33 98.0 F 62 18 129/80 100 - Physical Examination General: No Apparent Distress HEENT: Positive: PERRL Neck: Positive: trachea midline Cardiac: Positive: Reg Rate and Rhythm Lungs: Positive: Normal Breath Sounds Neuro: Positive: Grossly Intact Abdomen: Positive: Soft Skin: Negative: Rash, Suspicious Lesions, Ulceration Extremities: Present: upper extr. pulses. Absent: edema - Imaging and Cardiology Echo: report reviewed - Telemetry EKG Rhythm: Sinus Rhythm - EKG Sinus rhythms and dysrhythmias: sinus rhythm Chamber hypertrophy or enlargement: left ventricular hypertro
[2021-03-08] MEDS: carvediloL 6.25 MG TAB PO SCH ×2 (14:11→22:07)
[2021-03-08] MEDS: PANTOPRAZOLE 40 MG INJ IV SCH ×2 (14:12→22:05)
[2021-03-08 14:21] LABS: Basophils % (Auto) 0.8 % (0.0-1.8); Eosinophils % (Auto) 0.6 % (0.0-4.3); Hematocrit 25.8 % (35.5-45.6); Hemoglobin 8.4 gm/dl (11.8-15.2); Lymphocytes # (Auto) 0.7 K/mm3 (1.2-5.4); Lymphocytes % (Auto) 12.1 % (13.4-35.0); Mean Corpuscular HGB Conc 33 % (32-34); Mean Corpuscular Volume 83 fl (84-94); Monocytes # (Auto) 0.5 K/mm3 (0.0-0.8); Monocytes % (Auto) 9.9 % (0.0-7.3); Platelet Count 178 K/mm3 (140-440)
[2021-03-08 14:42] LABS: Hematocrit 24.9 % (35.5-45.6); Mean Corpuscular HGB Conc 32 % (32-34); Mean Corpuscular Volume 84 fl (84-94); Platelet Count 174 K/mm3 (140-440); Red Blood Count 2.95 M/mm3 (3.65-5.03)
[2021-03-08 14:43] LABS: Red Cell Distribution Width 20.3 % (13.2-15.2)
[2021-03-08 14:44] LABS: Alanine Aminotransferase 10 units/L (7-56); Albumin 3.2 g/dL (3.9-5); BUN/Creatinine Ratio 25; Blood Urea Nitrogen 35 mg/dL (9-20); Calcium 8.1 mg/dL (8.4-10.2); Hemolysis Index 3
[2021-03-08 15:02] LABS: BUN/Creatinine Ratio 24; Blood Urea Nitrogen 33 mg/dL (9-20); Hemolysis Index 5
--- NOTE | 2021-03-08 20:38 | Progress Note ---
Assessment and Plan Assessment and plan: 55-year-old -[place] male with no significant past medical history was brought to the emergency room because of weakness and episodes of passing out over the past 2 days. Patient says that multiple times he has gotten up from being seated, or gotten out of his car, " I cannot make it more than 4 steps before I get weak or pass out." He denies any headache, vision change, slurred speech, numbness or paresthesias, chest pain. while seated and resting, the patient says that he is asymptomatic. He does not have a primary care physician. No recent travel or sick contacts at home. In the emergency room patient is found to have hemoglobin of 4.0 and hematocrit 13.4, also patient troponin is elevated 0.114.'s were going to admit the patient to the telemetry. Will consult GI. Patient is getting 3 unit of packed red blood cell, Protonix we also consult cardiology (1) Symptomatic iron deficiency anemia Current Visit: Yes Status: Acute Plan to address problem: Continue Protonix 40 mg IV every 12 hour. Patient received PRBC transfusions x4, hemoglobin improved from 4-6.2. However, hemoglobin keeps dropping, dropped to 5.6 this morning and ordered 2 more units of PRBC. Patient currently fairly asymptomatic. Continue hemoglobin checks every 6 hours and transfuse as needed to maintain hemoglobin 8-9 in view of NSTEMI. Iron panel is suggestive of severe iron deficiency. GI consulted and planning for endoscopy. (2) GI bleed with significant weight loss Current Visit: Yes Status: Acute Plan to address problem: Patient reports intermittent burgundy colored stool since 2 weeks or so. Patient also reports significant weight loss since several months. Patient repo rts recent BMs brown in color before admission. However patient nurse reports that the patient had a tarry colored stool on 03/06 but not sent for occult blood test. Tolerating clear liquids. Asymptomatic and hemodynamically stable. Normal saline at the rate of 100 cc/h. Protonix 40 mg IV every [address] abdomen without contrast unremarkable. GI planning for endoscopy. (3) Elevated troponin/NSTEMI Current Visit: Yes Status: Acute Plan to address problem: Most likely triggered by severe anemia. Patient denies chest pains, palpitations or dyspnea. Denies history of CAD. Serial troponins 0.11, 0.14 and 0.14. Today 0.11. Hemodynamically stable. NSR. BP slightly elevated. Echo shows dilated cardiomyopathy with severe LVH, LV mildly dilated, moderate global LV hypokinesis with EF 35 to 40%, diastolic dysfunction present, RV moderately dilated with mild hypokinesis, RV mildly dilated and LVH severely dilated. No valvular dysfunction. Cardiology consulted and evaluating. Started on heart failure and ischemic regimen. Aspirin and anticoagulation contraindicated due to ongoing GI bleed and severe anemia. Will need ischemic evaluation once her GI bleed resolves. Remains surprisingly asymptomatic and hemodynamically stable in the setting of severe anemia. (4) KRISTOFER versus CKD Current Visit: Yes Status: Acute Plan to address problem: Creatinine 1.7 and 1.6 with no further improvement and unknown baseline. Will obtain UA and renal ultrasound. Normal saline at the rate of 100 cc/h. Avoid hypotension and nephrotoxic drug. Renally dose medication. (5) Recurrent syncope, likely vasovagal from severe anemia Current Visit: Yes Status: Acute Plan to address problem: Hemodynamically stable in ED. NSR, BP slightly elevated. Currently no lightheadedness/dizziness with ambulation. Normal saline at the rate of 100 cc/h. (6) DVT prophylaxis Current Visit: Yes Status: Acute Plan to address problem: SCD for DVT prophylaxis. Protonix 40 mg IV every 12 hours for GI prophylaxis. Patient is a full code Discussed with patient, cardiology, GI and the nursing staff. Hospitalist Physical - Constitutional Vitals: Temp Pulse Resp BP Pulse Ox 98.2 F 59 L 18 157/95 100 03/08/21 15:54 03/08/21 15:54 03/08/21 15:54 03/08/21 15:54 03/08/21 15:54 General appearance: Present: no acute distress, disheveled, other (Alert and oriented) HEART Score - HEART Score Troponin: Troponin T 0.076 ng/mL (0.00-0.029) H D 03/08/21 13:11 Results - Labs CBC & Chem 7: 03/08/21 14:30 03/08/21 14:30 Labs: Laboratory Last Values WBC 5.6 K/mm3 (4.5-11.0) 03/08/21 14:30 RBC 2.95 M/mm3 (3.65-5.03) L 03/08/21 14:30 Hgb 8.0 gm/dl (11.8-15.2) L 03/08/21 14:30 Hct 24.9 % (35.5-45.6) L 03/08/21 14:30 MCV 84 fl (84-94) 03/08/21 14:30 MCH 27 pg (28-32) L 03/08/21 14:30 MCHC 32 % (32-34) 03/08/21 14:30 RDW 20.3 % (13.2-15.2) H 03/08/21 14:30 Plt Count 174 K/mm3 (140-440) 03/08/21 14:30 Lymph % (Auto) 12.1 % (13.4-35.0) L 03/08/21 13:11 [place] % (Auto) 9.9 % (0.0-7.3) H 03/08/21 13:11 Eos % (Auto) 0.6 % (0.0-4.3) 03/08/21 13:11 Baso % (Auto) 0.8 % (0.0-1.8) 03/08/21 13:11 Lymph # (Auto) 0.7 K/mm3 (1.2-5.4) L 03/08/21 13:11 [place] # (Auto) 0.5 K/mm3 (0.0-0.8) 03/08/21 13:11 Eos # (Auto) 0.0 K/mm3 (0.0-0.4) 03/08/21 13:11 Baso # (Auto) 0.0 K/mm3 (0.0-0.1) 03/08/21 13:11 Add Manual Diff Complete 03/06/21 18:58 Total Counted 100 03/06/21 18:58 Seg Neutrophils % 76.6 % (40.0-70.0) H 03/08/21 13:11 Seg Neuts % (Manual) 91.0 % (40.0-70.0) H 03/06/21 18:58 Lymphocytes % (Manual) 7.0 % (13.4-35.0) L 03/06/21 18:58 Monocytes % (Manual) 2.0 % (0.0-7.3) 03/06/21 18:58 Nucleated RBC % Not Reportable 03/06/21 18:58 Seg Neutrophils # 4.2 K/mm3 (1.8-7.7) 03/08/21 13:11 Seg Neutrophils # Man 6.3 K/mm3 (1.8-7.7) 03/06/21 18:58 Band Neutrophils # 0.0 K/mm3 03/06/21 18:58 Lymphocytes # (Manual) 0.5 K/mm3 (1.2-5.4) L 03/06/21 18:58 Abs React Lymphs (Man) 0.0 K/mm3 03/06/21 18:58 Monocytes # (Manual) 0.1 K/mm3 (0.0-0.8) 03/06/21 18:58 Eosinophils # (Manual) 0.0 K/mm3 (0.0-0.4) 03/06/21 18:58 Basophils # (Manual) 0.0 K/mm3 (0.0-0.1) 03/06/21 18:58 Metamyelocytes # 0.0 K/mm3 03/06/21 18:58 Myelocytes # 0.0 K/mm3 03/06/21 18:58 Promyelocytes # 0.0 K/mm3 03/06/21 18:58 Blast Cells # 0.0 K/mm3 03/06/21 18:58 WBC Morphology Not Reportable 03/06/21 18:58 Hypersegmented Neuts Not Reportable 03/06/21 18:58 Hyposegmented Neuts Not Reportable 03/06/21 18:58 Hypogranular Neuts Not Reportable 03/06/21 18:58 Smudge Cells Not Reportable 03/06/21 18:58 Toxic Granulation Not Reportable 03/06/21 18:58 Toxic Vacuolation Not Reportable 03/06/21 18:58 Dohle Bodies Not Reportable 03/06/21 18:58 Pelger-Huet Anomaly Not Reportable 03/06/21 18:58 Marianne Rods Not Reportable 03/06/21 18:58 Platelet Estimate Consistent w auto 03/06/21 18:58 Clumped Platelets Not Reportable 03/06/21 18:58 Plt Clumps, EDTA Not Reportable 03/06/21 18:58 Large Platelets Not Reportable 03/06/21 18:58 Giant Platelets Not Reportable 03/06/21 18:58 Platelet Satelliting Not Reportable 03/06/21 18:58 Plt Morphology Comment Not Reportable 03/06/21 18:58 RBC Morphology Not Reportable 03/06/21 18:58 Dimorphic RBCs Not Reportable 03/06/21 18:58 Polychromasia Not Reportable 03/06/21 18:58 Hypochromasia 1+ 03/06/21 18:58 Poikilocytosis Not Reportable 03/06/21 18:58 Anisocytosis 1+ 03/06/21 18:58 Microcytosis Not Reportable 03/06/21 18:58 Macrocytosis Not Reportable 03/06/21 18:58 Spherocytes Not Reportable 03/06/21 18:58 Pappenheimer Bodies Not Reportable 03/06/21 18:58 Sickle Cells Not Reportable 03/06/21 18:58 Target Cells Not Reportable 03/06/21 18:58 Tear Drop Cells Not Reportable 03/06/21 18:58 Ovalocytes Not Reportable 03/06/21 18:58 Helmet Cells Not Reportable 03/06/21 18:58 Quesada-Hermiston Bodies Not Reportable 03/06/21 18:58 Pemberton Rings Not Reportable 03/06/21 18:58 Downs Cells Not Reportable 03/06/21 18:58 Bite Cells Not Reportable 03/06/21 18:58 Crenated Cell Not Reportable 03/06/21 18:58 Elliptocytes Not Reportable 03/06/21 18:58 Acanthocytes (Spur) Not Reportable 03/06/21 18:58 Rouleaux Not Reportable 03/06/21 18:58 Hemoglobin C Crystals Not Reportable 03/06/21 18:58 Schistocytes Not Reportable 03/06/21 18:58 Malaria parasites Not Reportable 03/06/21 18:58 Percent Retic 2.41 % (0.78-2.58) 03/08/21 14:30 Pan Bodies Not Reportable 03/06/21 18:58 Hem Pathologist Commnt No 03/06/21 18:58 Sodium 137 mmol/L (137-145) 03/08/21 14:30 Potassium 4.0 mmol/L (3.6-5.0) 03/08/21 14:30 Chloride 104.4 mmol/L (98-107) 03/08/21 14:30 Carbon Dioxide 23 mmol/L (22-30) 03/08/21 14:30 Anion Gap 14 mmol/L 03/08/21 14:30 BUN 33 mg/dL (9-20) H 03/08/21 14:30 Creatinine 1.4 mg/dL (0.8-1.3) H 03/08/21 14:30 Estimated GFR > 60 ml/min 03/08/21 14:30 BUN/Creatinine Ratio 24 % 03/08/21 14:30 Glucose 88 mg/dL (75-100) 03/08/21 14:30 Hemoglobin A1c 5.1 % (4-6) 03/06/21 11:17 Calcium 8.0 mg/dL (8.4-10.2) L 03/08/21 14:30 Magnesium 1.80 mg/dL (1.7-2.3) 03/08/21 14:30 Iron 9 ug/dL (49-181) L 03/06/21 11:17 TIBC 309 mcg/dL (250-450) 03/06/21 11:17 Ferritin 21.9 ng/mL (30.0-300.0) L 03/06/21 11:17 Total Bilirubin 0.50 mg/dL (0.1-1.2) 03/08/21 13:11 AST 15 units/L (5-40) 03/08/21 13:11 ALT 10 units/L (7-56) 03/08/21 13:11 Alkaline Phosphatase 83 units/L (35-129) 03/08/21 13:11 Troponin T 0.076 ng/mL (0.00-0.029) H D 03/08/21 13:11 NT-Pro-B Natriuret Pep 5083 pg/mL (0-900) H 03/08/21 13:11 Total Protein 6.0 g/dL (6.3-8.2) L 03/08/21 13:11 Albumin 3.2 g/dL (3.9-5) L 03/08/21 13:11 Albumin/Globulin Ratio 1.1 % 03/08/21 13:11 Triglycerides 82 mg/dL (2-149) 03/05/21 23:17 Cholesterol 107 mg/dL (50-199) 03/05/21 23:17 LDL Cholesterol Direct 53 mg/dL (50-130) 03/05/21 23:17 HDL Cholesterol 42 mg/dL (40-59) 03/05/21 23:17 Cholesterol/HDL Ratio 2.54 % 03/05/21 23:17 TSH 3.360 mlU/mL (0.270-4.200) 03/05/21 23:17 Blood Type O POSITIVE 03/05/21 23:50 Antibody Screen Negative 03/05/21 23:50 Crossmatch See Detail 03/05/21 23:50 Muñoz/IV: Voiding Method Toilet Active Medications - Current Medications Current Medications: Generic Name Dose Route Start Last Admin Trade Name Freq PRN Reason Stop Dose Admin Acetaminophen 650 mg 03/06/21 02:47 Acetaminophen 325 Mg Tab PO Q6H PRN Pain, Mild (1-3) Atorvastatin Calcium 40 mg 03/06/21 22:00 03/07/21 21:14 Atorvastatin 40 Mg Tab PO 40 mg QHS FRANKIE Administration Carvedilol 6.25 mg 03/07/21 10:00 03/08/21 14:11 Carvedilol 6.25 Mg Tab PO 6.25 mg BID FRANKIE Administration Hydralazine HCl 25 mg 03/07/21 09:00 03/08/21 18:58 Hydralazine 25 Mg Tab PO Not Given Q8HR FRANKIE Dextrose/Sodium Chloride 1,000 mls @ 75 mls/hr 03/06/21 17:00 03/07/21 21:21 D5ns IV 75 mls/hr DIRECT FRANKIE Administration Isosorbide Mononitrate 30 mg 03/07/21 10:00 03/08/21 14:12 Isosorbide Mononitrate Er 30 Mg Tab PO 30 mg QDAY FRANKIE Administration Pantoprazole Sodium 40 mg 03/06/21 10:00 03/08/21 14:12 Pantoprazole 40 Mg Inj IV 40 mg BID FRANKIE Administration Sodium Chloride 10 ml 03/06/21 02:47 03/07/21 21:16 Sodium Chloride 0.9% 10 Ml Flush Syringe IV 10 ml PRN PRN Administration LINE FLUSH Tramadol HCl 50 mg 03/06/21 02:47 Tramadol 50 Mg Tab PO Q6H PRN Pain, Moderate (4-6)
[2021-03-09] MEDS: hydrALAZINE 25 MG TAB PO SCH ×2 (05:34→16:07)
[2021-03-09 07:22] LABS: Hematocrit 21.9 % (35.5-45.6); Lymphocytes % (Auto) 16.7 % (13.4-35.0); Mean Corpuscular HGB Conc 32 % (32-34); Mean Corpuscular Volume 84 fl (84-94); Monocytes % (Auto) 11.1 % (0.0-7.3); Platelet Count 159 K/mm3 (140-440); Red Blood Count 2.59 M/mm3 (3.65-5.03); Red Cell Distribution Width 20.1 % (13.2-15.2)
[2021-03-09 07:23] LABS: Basophils % (Auto) 0.8 % (0.0-1.8); Eosinophils # (Auto) 0.1 K/mm3 (0.0-0.4); Eosinophils % (Auto) 2.1 % (0.0-4.3); Lymphocytes # (Auto) 0.7 K/mm3 (1.2-5.4); Monocytes # (Auto) 0.5 K/mm3 (0.0-0.8)
--- NOTE | 2021-03-09 09:04 | Ultrasound Report ---
US renal BILAT INDICATION / CLINICAL INFORMATION: KRISTOFER. COMPARISON: None available. FINDINGS: RIGHT KIDNEY: Size = 9.8 cm. - Echogenicity: Increased echogenicity and decreased visualization of the renal pyramids. - Cortical thickness: Normal. - Hydronephrosis: None. - Cyst or mass: None. - Stones: None seen.. LEFT KIDNEY: Size = 10.2 cm. - Echogenicity: Increased echogenicity and decreased visualization of the renal pyramids. - Cortical thickness: Normal. - Hydronephrosis: None. - Cyst or mass: Small mid pole simple appearing cyst measuring 1.1 cm. - Stones: None seen.. URINARY BLADDER: No significant abnormality. FREE FLUID: None. ADDITIONAL FINDINGS: None. IMPRESSION 1. Findings of medical renal disease without other significant sonographic abnormality. Signer Name: Owen Calabrese MD Signed: 03/09/2021 9:00 AM Workstation Name: [id number]
[2021-03-09] MEDS: PANTOPRAZOLE 40 MG INJ IV SCH (09:33)
[2021-03-09] MEDS: carvediloL 6.25 MG TAB PO SCH (09:33)
--- NOTE | 2021-03-09 10:24 | Consultation ---
History of Present Illness - Reason for Consult Consult date: 03/09/21 chronic renal failure - History of Present Illness The patient is a 55 YO AAM with no significant past medical history who was brought to [facility] ED 03/05 for evaluation of weakness and episodes of passing out over the past 2 days. Patient says that multiple times he has gotten up from being seated, or gotten out of his car, he cannot make it more than 4 steps before he gets weak or pass out." He denies any headache, vision change, slurred speech, numbness, tingling, chest pain, fever, chills, dysuria, hematuria, foamy urine, leg swelling or rash. No recent travel or sick contacts at home. He does not have a primary care physician. Labs notable for Hb of 4 on admission. Creatinine 1.6 today. Nephrology was consulted for further evaluation and treatment of possible KRISTOFER. Past History Past Medical History: No medical history Past Surgical History: No surgical history Social history: smoking (1/2ppd) Family history: diabetes Medications and Allergies Allergies Allergy/AdvReac Type Severity Reaction Status Date / Time No Known Allergies Allergy Verified 03/05/21 22:48 Home Medications Medication Instructions Recorded Confirmed Last Taken Type Ascorbic Acid [Vitamin C] 0 mg PO BID #60 tablet 03/09/21 Unknown Rx AtorvaSTATin [Lipitor] 40 mg PO QHS #30 tablet 03/09/21 Unknown Rx Ferrous Sulfate [Iron 325 MG] 325 mg PO BID #60 tablet 03/09/21 Unknown Rx Folic Acid 1 mg PO DAILY #30 tablet 03/09/21 Unknown Rx ISOSORBIDE MONOnitrate [Imdur ER] 30 mg PO QDAY #30 tablet 03/09/21 Unknown Rx Mecobalamin [B12 Active] 1,000 mcg PO DAILY #30 tab.chew 03/09/21 Unknown Rx Pantoprazole [Protonix TAB] 40 mg PO BIDAC #30 tablet 03/09/21 Unknown Rx carvediloL [Coreg] 6.25 mg PO BID #60 tablet 03/09/21 Unknown Rx hydrALAZINE [Apresoline TAB] 25 mg PO Q8HR #90 tablet 03/09/21 Unknown Rx Active Meds: Active Medications Acetaminophen (Acetaminophen 325 Mg Tab) 650 mg PO Q6H PRN PRN Reason: Pain, Mild (1-3) Atorvastatin Calcium (Atorvastatin 40 Mg Tab) 40 mg PO QHS FRANKIE Last Admin: 03/08/21 22:05 Dose: 40 mg Documented by: Carvedilol (Carvedilol 6.25 Mg Tab) 6.25 mg PO BID [facility] Last Admin: 03/09/21 09:33 Dose: 6.25 mg Documented by: Hydralazine HCl (Hydralazine 25 Mg Tab) 25 mg PO Q8HR [facility] Last Admin: 03/09/21 05:34 Dose: 25 mg Documented by: Dextrose/Sodium Chloride (D5ns) 1,000 mls @ 75 mls/hr IV DIRECT [facility] Last Admin: 03/07/21 21:21 Dose: 75 mls/hr Documented by: Isosorbide Mononitrate (Isosorbide Mononitrate Er 30 Mg Tab) 30 mg PO QDAY [facility] Last Admin: 03/09/21 09:33 Dose: 30 mg Documented by: Pantoprazole Sodium (Pantoprazole 40 Mg Inj) 40 mg IV BID [facility] Last Admin: 03/09/21 09:33 Dose: 40 mg Documented by: Sodium Chloride (Sodium Chloride 0.9% 10 Ml Flush Syringe) 10 ml IV PRN PRN PRN Reason: LINE FLUSH Last Admin: 03/07/21 21:16 Dose: 10 ml Documented by: Tramadol HCl (Tramadol 50 Mg Tab) 50 mg PO Q6H PRN PRN Reason: Pain, Moderate (4-6) Review of Systems All systems: negative Exam - Vital Signs Vital signs: Vital Signs Temp Pulse Resp BP Pulse Ox 97.6 F 92 H 17 104/61 100 03/05/21 22:42 03/05/21 22:42 03/05/21 22:42 03/05/21 22:42 03/05/21 22:42 Results - Lab Results 03/09/21 15:12 03/09/21 06:09 Most recent lab results Calcium 8.0 mg/dL (8.4-10.2) L 03/09/21 06:09 Magnesium 1.80 mg/dL (1.7-2.3) 03/08/21 14:30 Assessment and Plan 1. Acute kidney injury vs CKD: Suspect CKD. Baseline renal function is unknown. Renal US suggestive of CKD. Urine studies ordered. Monitor renal function. Creatinine leveled off. Avoid nephrotoxic agents. Meds dosage based on GFR. 2. FEN: Monitor lytes and volume status. 3. Severe anemia, POA: Symptomatic anemia. Iron deficiency. 2/2 GI bleed. S/p PRBC. Monitor. 4. GI bleed: Patient reports intermittent burgundy colored stool since 2 weeks or so. S/p EGD. Protonix. Followed by GI. 3. Elevated troponin/NSTEMI: Suspected 2/2 severe anemia. Followed by Cards. 5. Recurrent syncope, likely vasovagal from severe anemia, POA. Patient was advised to f/u with us in 1-2 weeks. Subjective: Patient was seen and examined at the bedside. Examination: General appearance: well-developed, appears stated age, not in distress HEENT: atraumatic, RON Neck: trachea midline Respiratory: ctab Heart: S1S2, no murmur Abdomen: soft, bowel sounds heard, NT Integumentary: no obvious rash Neurologic: AO, able to move extremities Ext: no edema noted
--- NOTE | 2021-03-09 10:55 | Progress Note ---
Assessment and Plan Patient is 55-year-old -Japanese male with no significant past medical history who came to the ED for complaint of weakness for 3 to 4 days Symptomatic Anemia-patient being transfused with PRBCs GI Bleed- GI following NSTEMI suspected type 2-likely result of severe anemia/ GI bleed KRISTOFER-creatinine 1.6 Cardiomyopathy HTN Tobacco use Echo 03/06/2021-EF 35 to 40%. Moderate global hypokinesis of left ventricle. Left atrium severely dilated. Right atrium mildly dilated. Right ventricle moderately dilated. Right ventricle is mildly hypokinetic Plan: Patient found to have nonbleeding duodenal ulcer No anticoagulation due to patient's severe anemia Troponins have downtrended since admission Continue Coreg 6.25 mg p.o. twice daily, Imdur 30 mg p.o. daily, hydralazine 25 mg p.o. 3 times daily Patient has not had any complaints of chest pain. Patient to have ischemic eval as an outpatient and once H&H stable Cardiac status stable Patient has a follow up appointment with Dr. Cervantes, [facility], at 2:30om at our [place] location. Phone number [phone] Patient seen in conjunction with Dr. Cervantes who agrees with this plan of care - Patient Problems (1) Tobacco use Current Visit: Yes Status: Acute (2) KRISTOFER (acute kidney injury) Current Visit: Yes Status: Acute (3) GI bleed Current Visit: Yes Status: Acute (4) NSTEMI (non-ST elevated myocardial infarction) Current Visit: Yes Status: Acute (5) Recurrent syncope Current Visit: Yes Status: Acute (6) Symptomatic anemia Current Visit: Yes Status: Acute Subjective Date of service: 03/09/21 Principal diagnosis: GI bleed, NSTEMI, Symptomatic anemia Interval history: Patient lying in bed in no acute distress Reports feeling good Trending Sinus 50s-60s on monitor Objective Vital Signs Temp Pulse Resp BP Pulse Ox 03/09/21 08:30 99 03/09/21 02:58 98.0 F 57 L 16 127/76 99 03/09/21 02:00 99 03/08/21 23:56 64 03/08/21 23:17 97.6 F 59 L 18 114/60 99 03/08/21 19:49 97.8 F 64 18 157/98 100 03/08/21 15:54 98.2 F 59 L 18 157/95 100 03/08/21 14:00 63 99 03/08/21 11:22 98.0 F 61 18 157/102 100 - Physical Examination General: No Apparent Distress HEENT: Positive: PERRL Neck: Positive: trachea midline Cardiac: Positive: Reg Rate and Rhythm Lungs: Positive: Normal Breath Sounds Neuro: Positive: Grossly Intact Abdomen: Positive: Soft Skin: Negative: Rash, Suspicious Lesions, Ulceration Extremities: Present: upper extr. pulses. Absent: edema - Labs and Meds Cardiac Enzymes 03/08/21 Range/Units 13:11 AST 15 (5-40) units/L CBC 03/08/21 03/08/21 03/09/21 Range/Units 13:11 14:30 06:09 WBC 5.5 5.6 4.2 L (4.5-11.0) K/mm3 RBC 3.10 L 2.95 L 2.59 L (3.65-5.03) M/mm3 Hgb 8.4 L 8.0 L 7.0 L (11.8-15.2) gm/dl Hct 25.8 L D 24.9 L 21.9 L (35.5-45.6) % Plt Count 178 174 159 (140-440) K/mm3 Lymph # (Auto) 0.7 L 0.7 L (1.2-5.4) K/mm3 [place] # (Auto) 0.5 0.5 (0.0-0.8) K/mm3 Eos # (Auto) 0.0 0.1 (0.0-0.4) K/mm3 Baso # (Auto) 0.0 0.0 (0.0-0.1) K/mm3 Comprehensive Metabolic Panel 03/08/21 03/08/21 03/09/21 Range/Units 13:11 14:30 06:09 Sodium 136 L 137 140 (137-145) mmol/L Potassium 4.1 4.0 4.6 (3.6-5.0) mmol/L Chloride 102.1 104.4 108.5 H (98-107) mmol/L Carbon Dioxide 22 23 24 (22-30) mmol/L BUN 35 H 33 H 30 H (9-20) mg/dL Creatinine 1.4 H 1.4 H 1.6 H (0.8-1.3) mg/dL Glucose 91 88 85 (75-100) mg/dL Calcium 8.1 L 8.0 L 8.0 L (8.4-10.2) mg/dL AST 15 (5-40) units/L ALT 10 (7-56) units/L Alkaline Phosphatase 83 (35-129) units/L Total Protein 6.0 L (6.3-8.2) g/dL Albumin 3.2 L (3.9-5) g/dL - Imaging and Cardiology Echo: report reviewed - Telemetry EKG Rhythm: Sinus Rhythm - EKG Sinus rhythms and dysrhythmias: sinus rhythm Chamber hypertrophy or enlargement: left ventricular hypertro
--- NOTE | 2021-03-09 10:59 | Electrocardiograph Report ---
[facility] Test Date: 2021-03-09 Test Time: 07:45:51 Pat Name: EMMETT GUSMAN Department: Room: A459 1 Gender: M [employer]: LINDSEY : 1965 Requested By: PILAR LINO Order Number: [id number] Reading MD: Louis Cervantes Measurements Intervals [place] Rate: 55 P: 53 ND: 160 QRS: -12 QRSD: 103 T: 89 QT: 499 QTc: 477 Interpretive Statements Sinus rhythm Probable left ventricular hypertrophy Compared to ECG 03/07/2021 07:09:35 Early repolarization no longer present Electronically Signed On 03-09-2021 10:59:03 EST by Louis Cervantes
--- NOTE | 2021-03-09 14:36 | Gastroenterology Progress Note ---
Assessment and Plan # GI bleed # Symptomatic anemia - suspect lower GI bleed. - iron deficiency anemia noted. Hgb at 4 on admission. went to 6 post 2 units of PRBCs. - HD stable. - CT without contrast without acute findings. - s/p EGD/colonoscopy. - EGD 1. A 1 cm clean based ulcer with surrounding edema without high risk stigmata in the duodenal bulb. Biopsies obtained. 2. Moderate gastritis with erythema and edema in the antrum and gastric body. Biopsies obtained. 3. Normal esophagus exam. 4. No blood seen throughout the exam Rec - Hgb down to 7 from 8 but no clinical signs of recurrent bleeding. - advance diet. - cont with PPI IV - Recommend follow up in outpatient GI clinic in 2-3 weeks. - will sign off. please call as needed. - Patient Problems (1) GI bleed Current Visit: Yes Status: Acute (2) Symptomatic anemia Current Visit: Yes Status: Acute Subjective Date of service: 03/09/21 Principal diagnosis: GI bleed, NSTEMI, Symptomatic anemia Interval history: Reports having dark stools. No abdominal pain. Objective - Constitutional Vitals: Temp Pulse Resp BP Pulse Ox 98.0 F 48 L 16 127/76 99 03/09/21 02:58 03/09/21 07:40 03/09/21 02:58 03/09/21 02:58 03/09/21 08:30 General appearance: no acute distress - EENT Eyes: EOM intact ENT: hearing intact - Respiratory Respiratory effort: normal - Cardiovascular Rhythm: regular - Gastrointestinal General gastrointestinal: Present: soft, non-tender, non-distended - Integumentary Integumentary: Present: clear, warm - Neurologic Neurological: alert and oriented x3 - Labs CBC & Chem 7: 03/09/21 06:09 03/09/21 06:09 Labs: Laboratory Results - last 24 hr 03/08/21 03/08/21 03/08/21 13:11 14:30 14:30 WBC 5.6 RBC 2.95 L Hgb 8.0 L Hct 24.9 L MCV 84 MCH 27 L MCHC 32 RDW 20.3 H Plt Count 174 Lymph % (Auto) [place] % (Auto) Eos % (Auto) Baso % (Auto) Lymph # (Auto) [place] # (Auto) Eos # (Auto) Baso # (Auto) Seg Neutrophils % Seg Neutrophils # Percent Retic 2.41 Sodium 136 L Potassium 4.1 Chloride 102.1 Carbon Dioxide 22 Anion Gap 16 BUN 35 H Creatinine 1.4 H Estimated GFR > 60 BUN/Creatinine Ratio 25 Glucose 91 Calcium 8.1 L Magnesium Total Bilirubin 0.50 AST 15 ALT 10 Alkaline Phosphatase 83 Troponin T 0.076 H D NT-Pro-B Natriuret Pep 5083 H Total Protein 6.0 L Albumin 3.2 L Albumin/Globulin Ratio 1.1 03/08/21 03/09/21 03/09/21 14:30 06:09 06:09 WBC 4.2 L RBC 2.59 L Hgb 7.0 L Hct 21.9 L MCV 84 MCH 27 L MCHC 32 RDW 20.1 H Plt Count 159 Lymph % (Auto) 16.7 [place] % (Auto) 11.1 H Eos % (Auto) 2.1 Baso % (Auto) 0.8 Lymph # (Auto) 0.7 L [place] # (Auto) 0.5 Eos # (Auto) 0.1 Baso # (Auto) 0.0 Seg Neutrophils % 69.3 Seg Neutrophils # 2.9 Percent Retic Sodium 137 140 Potassium 4.0 4.6 Chloride 104.4 108.5 H Carbon Dioxide 23 24 Anion Gap 14 12 BUN 33 H 30 H Creatinine 1.4 H 1.6 H Estimated GFR > 60 55 BUN/Creatinine Ratio 24 19 Glucose 88 85 Calcium 8.0 L 8.0 L Magnesium 1.80 Total Bilirubin AST ALT Alkaline Phosphatase Troponin T NT-Pro-B Natriuret Pep Total Protein Albumin Albumin/Globulin Ratio
[2021-03-09 15:23] VITALS: BP 121/75
[2021-03-09 16:01] LABS: Hematocrit 22.7 % (35.5-45.6); Hemoglobin 7.2 gm/dl (11.8-15.2)
[2021-03-09] MEDS ORDERED: PANTOPRAZOLE 40 MG TAB PO SCH (16:30)
--- NOTE | 2021-03-09 16:52 | Discharge Summary ---
Providers - Providers Date of Admission: 03/06/21 02:48 Attending physician: TEX LION MD 03/06/21 Consult to Cardiac Rehabilitation [CONS] Routine Reason For Exam: Phase I 03/06/21 01:08 Consult to Physician [CONS] Routine Comment: Consulting Provider: ELBA GARRETT Physician Instructions: Reason For Exam: Anemia, GI Bleeding 03/06/21 02:48 Consult to Cardiology [CONS] Routine Consulting Provider: GUERLINE CONRAD Reason For Exam: nstemi 03/09/21 08:48 Consult to Physician [CONS] Routine Comment: Consulting Provider: TIARA DOAN Physician Instructions: Reason For Exam: KRISTOFER/CKD Primary care physician: RESOLUTION EXPERT Hospitalization Condition: Stable Hospital course: 55-year-old -[place] male with no significant past medical history was brought to the emergency room because of weakness and episodes of passing out over the past 2 days. Patient says that multiple times he has gotten up from being seated, or gotten out of his car, " I cannot make it more than 4 steps before I get weak or pass out." He denies any headache, vision change, slurred speech, numbness or paresthesias, chest pain. while seated and resting, the patient says that he is asymptomatic. He does not have a primary care physician. No recent travel or sick contacts at home. In the emergency room patient is found to have hemoglobin of 4.0 and hematocrit 13.4, also patient troponin is elevated 0.114.'s were going to admit the patient to the telemetry. Will consult GI. Patient is getting 3 unit of packed red blood cell, Protonix we also consult cardiology (1) Symptomatic iron deficiency anemia Current Visit: Yes Status: Acute Plan to address problem: Continue Protonix 40 mg IV every 12 hour. Patient received PRBC transfusions x4, hemoglobin improved from 4-6.2. However, hemoglobin keeps dropping, dropped to 5.6 this morning and ordered 2 more units of PRBC. Patient currently fairly asymptomatic. Continue hemoglobin checks every 6 hours and transfuse as needed to maintain hemoglobin 8-9 in view of NSTEMI. Iron panel is suggestive of severe iron deficiency. GI consulted and planning for endoscopy. (2) GI bleed with significant weight loss Current Visit: Yes Status: Acute Plan to address problem: Patient reports intermittent burgundy colored stool since 2 weeks or so. Patient also reports significant weight loss since several months. Patient reports recent BMs brown in color before admission. However patient nurse reports that the patient had a tarry colored stool on 03/06 but not sent for occult blood test. Tolerating clear liquids. Asymptomatic and hemodynamically stable. Normal saline at the rate of 100 cc/h. Protonix 40 mg IV every [address] abdomen without contrast unremarkable. GI planning for endoscopy. (3) Elevated troponin/NSTEMI Current Visit: Yes Status: Acute Plan to address problem: Most likely triggered by severe anemia. Patient denies chest pains, palpitations or dyspnea. Denies history of CAD. Serial troponins 0.11, 0.14 and 0.14. Today 0.11. Hemodynamically stable. NSR. BP slightly elevated. Echo shows dilated cardiomyopathy with severe LVH, LV mildly dilated, moderate global LV hypokinesis with EF 35 to 40%, diastolic dysfunction present, RV moderately dilated with mild hypokinesis, RV mildly dilated and LVH severely dilated. No valvular dysfunction. Cardiology consulted and evaluating. Started on heart failure and ischemic regimen. Aspirin and anticoagulation contraindicated due to ongoing GI bleed and severe anemia. Will need ischemic evaluation once her GI bleed resolves. Remains surprisingly asymptomatic and hemodynamically stable in the setting of severe anemia. (4) KRISTOFER versus CKD Current Visit: Yes Status: Acute Plan to address problem: Creatinine 1.7 and 1.6 with no further improvement and unknown baseline. Will obtain UA and renal ultrasound. Normal saline at the rate of 100 cc/h. Avoid hypotension and nephrotoxic drug. Renally dose medication. (5) Recurrent syncope, likely vasovagal from severe anemia Current Visit: Yes Status: Acute Plan to address problem: Hemodynamically stable in ED. NSR, BP slightly elevated. Currently no lightheadedness/dizziness with ambulation. Normal saline at the rate of 100 cc/h. Cardiology recommendations: Symptomatic Anemia-patient being transfused with PRBCs GI Bleed- GI following NSTEMI suspected type 2-likely result of severe anemia/ GI bleed KRISTOFER-creatinine 1.6 Cardiomyopathy HTN Tobacco use Echo 03/06/2021-EF 35 to 40%. Moderate global hypokinesis of left ventricle. Left atrium severely dilated. Right atrium mildly dilated. Right ventricle moderately dilated. Right ventricle is mildly hypokinetic Plan: Patient found to have nonbleeding duodenal ulcer No anticoagulation due to patient's severe anemia Troponins have downtrended since admission Continue Coreg 6.25 mg p.o. twice daily, Imdur 30 mg p.o. daily, hydralazine 25 mg p.o. 3 times daily Patient has not had any complaints of chest pain. Patient to have ischemic eval as an outpatient and once H&H stable Cardiac status stable Patient has a follow up appointment with Dr. Cervantes, [facility], at 2:30om at our [place] location. Phone number [phone] Disposition: HOME / SELF CARE / HOMELESS Exam - Constitutional Vitals: Temp Pulse Resp BP Pulse Ox 97.2 F L 55 L 20 121/75 100 03/09/21 15:21 03/09/21 15:21 03/09/21 15:21 03/09/21 15:21 03/09/21 15:21 General appearance: Present: no acute distress, other (Alert and oriented) - EENT Eyes: Present: PERRL. Absent: scleral icterus - Neck Neck: Present: supple - Respiratory Respiratory effort: normal Respiratory: bilateral: CTA - Cardiovascular Rhythm: regular - Extremities Extremities: No edema - Abdominal General gastrointestinal: Present: soft, non-tender, non-distended - Integumentary Integumentary: Absent: rash - Musculoskeletal Musculoskeletal: strength equal bilaterally - Neurologic Neurologic: no focal deficits Plan Activity: advance as tolerated Diet: low fat, low cholesterol, low salt Special Instructions: restrict fluid intake to (50 ounces daily) Additional Instructions: Do not use tobacco or alcohol. Do not use excessive caffeine. Return to ER for for bleeding, chest pain, fatigue or difficulty breathing call cardiology doctor's office to confirm appointment date. Call stomach doctor's office to get appointment Follow up with: PRIMARY CARE, [Primary Care Provider] - 3-5 Days MARLEE CERVANTES MD [Staff Physician] - 7 Days LORETTA BRIONES MD [Staff Physician] - 14 Days Prescriptions: AtorvaSTATin [Lipitor] 40 mg PO QHS #30 tablet hydrALAZINE [Apresoline TAB] 25 mg PO Q8HR #90 tablet Mecobalamin [B12 Active] 1,000 mcg PO DAILY #30 tab.chew carvediloL [Coreg] 6.25 mg PO BID #60 tablet Folic Acid 1 mg PO DAILY #30 tablet ISOSORBIDE MONOnitrate [Imdur ER] 30 mg PO QDAY #30 tablet Ferrous Sulfate [Iron 325 MG] 325 mg PO BID #60 tablet Pantoprazole [Protonix TAB] 40 mg PO BIDAC #30 tablet Ascorbic Acid [Vitamin C] 0 mg PO BID #60 tablet
== END 2021-03-09 18:31 | disposition home or self-care (01) | DRG 377 ==
LOC: ED 22:01 → 4A 03-06 02:48
PROVIDERS: ADMIT Hospitalist; ATTEND Internal Medicine
PROC: 30233N1 Transfusion of Nonautologous Red Blood Cells into Peripheral Vein, Percutaneous Approach (ICD-10-PCS; 2021-03-06)
PROC: 0DB68ZX Excision of Stomach, Via Natural or Artificial Opening Endoscopic, Diagnostic (ICD-10-PCS; principal; 2021-03-08)
PROC: 0DJD8ZZ Inspection of Lower Intestinal Tract, Via Natural or Artificial Opening Endoscopic (ICD-10-PCS; 2021-03-08)
PROC: 0DB98ZX Excision of Duodenum, Via Natural or Artificial Opening Endoscopic, Diagnostic (ICD-10-PCS; 2021-03-08)
DX: K26.4 Chronic or unspecified duodenal ulcer with hemorrhage (principal); I21.A1 Myocardial infarction type 2; N17.9 Acute kidney failure, unspecified; I42.9 Cardiomyopathy, unspecified; K29.71 Gastritis, unspecified, with bleeding; D50.9 Iron deficiency anemia, unspecified; R55 Syncope and collapse; D64.9 Anemia, unspecified; I25.10 Atherosclerotic heart disease of native coronary artery without angina pectoris; N18.9 Chronic kidney disease, unspecified; Z20.822 Contact with and (suspected) exposure to COVID-19
CPT/HCPCS: 36415; 70450; 71045; 74176; 76770; 80048; 80053; 80061; 82728; 83036; 83550; 83735; 83880; 84443; 84484; 85007; 85014; 85018; 85025; 85027; 85045; 86850; 86900; 86901; 86920; 88305; 88342; 93005; 93306; 99291; 99406; G0378; J1815; J3490; J7120; Q0162; C9113; J2250; J2704; J3475; J7030; J7040; J7042; P9016